=== PATIENT | female | born 1940 | race Caucasian/White ===

== ENCOUNTER → 2018-04-07 08:23 | Outpatient (CLI) | payer MEDICARE, BC, SELFPAY ==
[2018-04-07 09:36] LABS: Hemoglobin A1C% w Est Avg Glu 5.7 % (4.0-6.0)
[2018-04-07 09:37] LABS: Alanine Aminotransferase 27 IU/L (9-52); Albumin 4.3 g/dL (3.5-5.0); Albumin Globulin Ratio 1.4 (1.0-2.8); Alkaline Phosphatase 49 U/L (38-126); Aspartate Aminotransferase 26 IU/L (14-36); BUN Creatinine Ratio 28.6 (6-22); Bilirubin Total 0.6 mg/dL (0.2-1.3); Blood Urea Nitrogen 20 mg/dL (7-17); Calcium 9.3 mg/dL (8.4-10.2); Carbon Dioxide 33 mmol/L (22-32); Chloride 103 mmol/L (98-107); Cholesterol 195 mg/dL (140-199); Estimated Glomerular Filt Rate > 60.0 mL/min (>60); Glucose 102 mg/dL (80-110); HDL Cholesterol 67 mg/dL (40-60); HEMOLYSIS < 15 (0-50); LDL Cholesterol Calculated 113 mg/dL (<100); Potassium 4.6 mmol/L (3.4-5.1); Sodium 144 mmol/L (137-145); Total Protein 7.3 g/dL (6.3-8.2); Triglycerides 76 mg/dL (35-150)
== END ==
PROVIDERS: Visit Provider Student in an Organized Health Care Education/Training Program
DX: E78.00 Pure hypercholesterolemia, unspecified (principal); R73.01 Impaired fasting glucose
CPT/HCPCS: 36415; 80053; 80061; 83036

== ENCOUNTER → 2019-03-28 13:07 | Outpatient (CLI) | payer MEDICARE, BC, SELFPAY ==
--- NOTE | 2019-03-28 13:11 | DI.MG.S_ITS ---
BILATERAL DIGITAL DIAGNOSTIC MAMMOGRAM 3D/2D: 03/28/2019 CLINICAL: Right breast mass and left axilla pain. Baseline by default. No prior exams were available for comparison. The tissue of both breasts is extremely dense, which lowers the sensitivity of mammography. No significant masses, calcifications, or other findings are seen in either breast. IMPRESSION: INCOMPLETE: NEEDS ADDITIONAL IMAGING EVALUATION There is no mammographic abnormality seen in the right breast to correspond with the palpable abnormality. There is no mammographic abnormality seen in the left axilla to correspond with the pain in the left axilla. A targeted ultrasound of the bilateral breasts is recommended and will be performed immediately following this exam. This exam was interpreted at Station ID: [id number]. NOTE: For mammograms, a report in lay terms will be sent to the patient. Approximately 15% of breast malignancies will not be visualized mammographically. In the management of a palpable breast mass, a negative mammogram must not discourage biopsy of a clinically suspicious lesion. Electronically Signed By: Sarah Araiza M.D. lk/:03/28/2019 14:08:20 ACR BI-RADS Category 0: Incomplete 3340F
--- NOTE | 2019-03-28 13:11 | DI.US.S_ITS ---
ULTRASOUND OF RIGHT BREAST: 03/28/2019 CLINICAL: Palpable right breast lump. Comparison is made to exam dated: 03/28/2019 [facility]. Ultrasound of the right breast was performed on the area of interest. Romero scale images of the real-time examination were reviewed. IMPRESSION: NEGATIVE There is no sonographic evidence of malignancy. There is no mammographic or sonographic abnormality seen in the right breast to correspond with the palpable abnormality, however, clinical followup is recommended. A 1 year screening mammogram is recommended. This exam was interpreted at Station ID: [id number]. Electronically Signed By: Sarah Araiza M.D. lk/:03/28/2019 15:04:37 letter sent: Clinical Evaluation Ultrasound BI-RADS: 1 Negative
--- NOTE | 2019-03-28 13:11 | DI.US.S_ITS ---
ULTRASOUND OF LEFT BREAST: 03/28/2019 CLINICAL: Palpable left axilla lump. [facility] of the left breast was performed on the area of interest. Romero scale images of the real-time examination were reviewed. IMPRESSION: NEGATIVE There is no sonographic evidence of malignancy. There is no mammographic or sonographic abnormality seen in the left axilla to correspond with the pain in the left axilla, however, clinical followup is recommended. A 1 year screening mammogram is recommended. This exam was interpreted at Station ID: [id number]. Electronically Signed By: Sarah Araiza M.D. lk/:03/28/2019 15:04:02 letter sent: Clinical Evaluation Ultrasound BI-RADS: 1 Negative
== END ==
PROVIDERS: Visit Provider Nurse Practitioner
DX: N63.10 Unspecified lump in the right breast, unspecified quadrant (principal)
CPT/HCPCS: 76642; 77066; G0279

== ENCOUNTER → 2020-08-07 15:59 | Outpatient (CLI) | payer MEDICARE, BC, SELFPAY ==
--- NOTE | 2020-08-07 | DI.MG.S_ITS ---
BILATERAL DIGITAL SCREENING MAMMOGRAM 3D/2D WITH CAD: 08/07/2020 CLINICAL: Routine screening. Comparison is made to exams dated: 03/28/2019 mammogram - [facility], 09/18/2018 mammogram, 09/15/2017 mammogram, and 09/06/2016 mammogram - [facility]. The tissue of both breasts is extremely dense, which lowers the sensitivity of mammography. Current study was also evaluated with a Computer Aided Detection (CAD) system. There are benign vascular calcifications in both breasts. No significant masses, calcifications, or other findings are seen in either breast. There has been no significant interval change. IMPRESSION: BENIGN There is no mammographic evidence of malignancy. A 1 year screening mammogram is recommended. This exam was interpreted at Station ID: [id number]. NOTE: For mammograms, a report in lay terms will be sent to the patient. Approximately 15% of breast malignancies will not be visualized mammographically. In the management of a palpable breast mass, a negative mammogram must not discourage biopsy of a clinically suspicious lesion. Electronically Signed By: Keyur Rosas acr/penrad:08/07/2020 16:52:57 letter sent: Normal Exam ACR BI-RADS Category 2: Benign Finding(s) 3342F
== END ==
PROVIDERS: PCP Nurse Practitioner; Referring Provider Nurse Practitioner; Visit Provider Nurse Practitioner
DX: Z12.31 Encounter for screening mammogram for malignant neoplasm of breast (principal)
CPT/HCPCS: 77063; 77067

== ENCOUNTER → 2020-08-19 14:46 | Outpatient (ROUT) | payer MEDICARE, BC, SELFPAY ==
[2020-08-19 15:16] LABS: Hematocrit 39.6 % (36-46); Hemoglobin 13.3 g/dL (12.0-16.0); Mean Corpuscular HGB Conc 33.5 % (30-36); Mean Corpuscular Hemoglobin 31.4 PG (26-34); Mean Corpuscular Volume 93.7 fL (80-100); Platelet Count 219 X10^3/uL (150-400); Red Blood Cell Count 4.22 X10^6/uL (4.0-5.2); Red Cell Distribution Width 13.4 % (11.6-14.8); White Blood Cell Count 4.8 X10^3/uL (4.5-11.0)
[2020-08-19 15:30] LABS: Alanine Aminotransferase 16 IU/L (<35); Albumin 3.8 g/dL (3.5-5.0); Albumin Globulin Ratio 1.4 (1.0-2.8); Alkaline Phosphatase 51 U/L (38-126); Aspartate Aminotransferase 31 IU/L (14-36); Bilirubin Total 0.4 mg/dL (0.2-1.3); Blood Urea Nitrogen 18 mg/dL (7-17); Calcium 9.2 mg/dL (8.4-10.2); Carbon Dioxide 34 mmol/L (22-32); Chloride 103 mmol/L (98-107); Cholesterol 249 mg/dL (140-199); Estimated Glomerular Filt Rate > 60.0 mL/min (>60); Globulin 2.8 g/dL (1.7-4.1); Glucose 100 mg/dL (80-110); HDL Cholesterol 64 mg/dL (40-60); HEMOLYSIS < 15 (0-50); LDL Cholesterol Calculated 171 mg/dL (<100); Potassium 4.5 mmol/L (3.4-5.1); Sodium 138 mmol/L (137-145); Total Protein 6.6 g/dL (6.3-8.2); Triglycerides 70 mg/dL (35-150)
== END ==
PROVIDERS: PCP Nurse Practitioner; Visit Provider Student in an Organized Health Care Education/Training Program
DX: Z00.00 Encounter for general adult medical examination without abnormal findings (principal); E78.5 Hyperlipidemia, unspecified
CPT/HCPCS: 80053; 80061; 85027

== ENCOUNTER → 2020-08-27 14:14 | Outpatient (CLI) | payer MEDICARE, BC, SELFPAY | PROVIDERS: PCP Student in an Organized Health Care Education/Training Program; Referring Provider Student in an Organized Health Care Education/Training Program; Visit Provider Student in an Organized Health Care Education/Training Program | DX: M81.0 Age-related osteoporosis without current pathological fracture (principal); Z78.0 Asymptomatic menopausal state; Z82.62 Family history of osteoporosis; Z87.891 Personal history of nicotine dependence | CPT/HCPCS: 77080 ==

== ENCOUNTER → 2021-08-10 16:01 | Outpatient (CLI) | payer MEDICARE, BC, SELFPAY ==
--- NOTE | 2021-08-10 16:03 | DI.MG.S_ITS ---
BILATERAL DIGITAL SCREENING MAMMOGRAM 3D/2D WITH CAD: 08/10/2021 CLINICAL: Routine screening. Comparison is made to exams dated: 08/07/2020 mammogram, 03/28/2019 mammogram - [facility], and 09/18/2018 mammogram - [facility]. Current study was also evaluated with a Computer Aided Detection (CAD) system. There are benign vascular calcifications in both breasts. No significant masses, calcifications, or other findings are seen in either breast. There has been no significant interval change. IMPRESSION: BENIGN There is no mammographic evidence of malignancy. A 1 year screening mammogram is recommended. This exam was interpreted at Station ID: [id number]. NOTE: For mammograms, a report in lay terms will be sent to the patient. Approximately 15% of breast malignancies will not be visualized mammographically. In the management of a palpable breast mass, a negative mammogram must not discourage biopsy of a clinically suspicious lesion. Electronically Signed By: Srinivasa Booker M.D. [facility]/itz:08/11/2021 09:08:02 letter sent: Normal Exam ACR BI-RADS Category 2: Benign Finding(s) 3342F
== END ==
PROVIDERS: PCP Student in an Organized Health Care Education/Training Program; Referring Provider Student in an Organized Health Care Education/Training Program; Visit Provider Student in an Organized Health Care Education/Training Program
DX: Z12.31 Encounter for screening mammogram for malignant neoplasm of breast (principal)
CPT/HCPCS: 77063; 77067

== ENCOUNTER → 2021-08-26 16:36 | Outpatient (CLI) | payer MEDICARE, BC, SELFPAY ==
--- NOTE | 2021-08-26 | DI.MRI.S_ITS ---
PROCEDURE: MR SHOULDER RT WO CON INDICATIONS: unspecified disorder of synovium and tendon TECHNIQUE: Noncontrast oblique coronal T2 fast spin echo with fat saturation, oblique sagittal T1 spin echo and T2 fast spin echo with fat saturation, axial T1 spin echo and T2 fast spin echo with fat saturation through the shoulder. COMPARISON: [facility], CR, XR SHOULDER 2+ VIEWS RIGHT, 08/26/2021, 10:55. FINDINGS: Image quality: Excellent. Rotator cuff: There is mild tendinopathy of the supraspinatus tendon without a discrete tear. The infraspinatus, subscapularis, and teres minor also appear intact. There are foci of magnetic susceptibility artifact along the distal supraspinatus within the subacromial/subdeltoid bursa corresponding to calcifications on the prior x-ray and suggestive of calcific tendinitis. Sagittal images demonstrate no fatty muscle atrophy. Bones and bursae: No bone marrow contusions or fractures. There is moderate acromioclavicular joint degeneration. Mild inferior spurring is demonstrated along the acromion laterally. The acromion demonstrates conventional anatomy, without an os acromiale. There is a moderate amount of fluid in subacromial/subdeltoid bursa with heterogeneous filling defects including the foci of magnetic susceptibility described above corresponding to calcifications as well as linear filling defects which may represent synovitis or scarring. There is mild glenohumeral joint degeneration with small foci of subchondral edema along the glenoid. Capsule and soft tissues: There is mild degenerative tearing within the posterosuperior and posterior labrum. There is mild degenerative signal within the anteroinferior labrum. The long head of the biceps tendon demonstrates normal location and appears intact. IMPRESSION: 1. Mild tendinopathy in the supraspinatus tendon with associated foci of magnetic susceptibility distally consistent with calcifications extending into the subacromial/subdeltoid bursa. 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 The differential also includes dystrophic calcifications related to sequelae of bursitis. 2. Moderate amount of fluid in the subacromial/subdeltoid bursa with internal focal calcifications adjacent to the insertion of the supraspinatus as well as additional linear filling defects suggestive of synovitis or scarring. 3. Moderate acromioclavicular joint degeneration and mild glenohumeral joint degeneration. 4. Mild degenerative tearing of the posterosuperior and posterior labrum as well as degenerative signal in the anteroinferior labrum. Dictated by: Fito Velez M.D. on 08/27/2021 at 8:38 Approved by: Fito Velez M.D. on 08/27/2021 at 8:53
== END ==
PROVIDERS: PCP Student in an Organized Health Care Education/Training Program; Referring Provider Orthopaedic Surgery; Visit Provider Orthopaedic Surgery
DX: M65.811 Other synovitis and tenosynovitis, right shoulder (principal); M19.011 Primary osteoarthritis, right shoulder; S46.811A Strain of other muscles, fascia and tendons at shoulder and upper arm level, right arm, initial encounter
CPT/HCPCS: 73221

== ENCOUNTER → 2022-08-11 13:51 | Outpatient (CLI) | payer MEDICARE, BC, SELFPAY ==
--- NOTE | 2022-08-11 13:54 | DI.MG.S_ITS ---
BILATERAL DIGITAL SCREENING MAMMOGRAM 3D/2D WITH CAD: 08/11/2022 CLINICAL: Routine screening. Comparison is made to exams dated: 08/10/2021 mammogram, 08/07/2020 mammogram, and 03/28/2019 mammogram - [facility]. Both breasts are extremely dense, which lowers the sensitivity of mammography (category d />75% glandular tissue). Current study was also evaluated with a Computer Aided Detection (CAD) system. There is a developing oval asymmetry with an indistinct margin in the left breast posterior depth lateral region seen on the craniocaudal view only. No other significant masses, calcifications, or other findings are seen in either breast. IMPRESSION: INCOMPLETE: NEEDS ADDITIONAL IMAGING EVALUATION The developing oval asymmetry in the left breast is indeterminate. Additional views with possible ultrasound are recommended. Based on the Tyrer Cuzick model (a risk assessment model) the patient's lifetime risk is 4.7% and her 10 year risk is 0.0%. According to the ACR, ACS, and NCCN guidelines, an annual breast MRI exam along with mammogram is recommended if the patient's lifetime risk is 20% or greater. This exam was interpreted at Station ID: [id number]. NOTE: For mammograms, a report in lay terms will be sent to the patient. Approximately 15% of breast malignancies will not be visualized mammographically. In the management of a palpable breast mass, a negative mammogram must not discourage biopsy of a clinically suspicious lesion. Electronically Signed By: Tami mueller/itz:08/11/2022 15:47:56 letter sent: Additional Imaging Needed ACR BI-RADS Category 0: Incomplete 3340F
== END ==
PROVIDERS: PCP Student in an Organized Health Care Education/Training Program; Referring Provider Nurse Practitioner; Visit Provider Nurse Practitioner
DX: Z12.31 Encounter for screening mammogram for malignant neoplasm of breast (principal)
CPT/HCPCS: 77063; 77067

== ENCOUNTER → 2022-09-02 11:22 | Outpatient (CLI) | payer MEDICARE, BC, SELFPAY ==
--- NOTE | 2022-09-02 11:24 | DI.US.S_ITS ---
LIMITED ULTRASOUND OF LEFT BREAST: 09/02/2022 CLINICAL: Patient returns today to evaluate a focal asymmetry in the left breast. Comparison is made to exams dated: 09/02/2022 mammogram, 08/11/2022 mammogram, 08/10/2021 mammogram, and 08/07/2020 mammogram - [facility]. Ultrasound of the left breast 2-4 o'clock region was performed. Romero scale images of the real-time examination were reviewed. No significant abnormalities were seen sonographically in the left breast. Specifically, no finding to correspond to the patient's less prominent screening mammographic abnormality. IMPRESSION: PROBABLY BENIGN There is no sonographic correlate to the patient's mammographic abnormality. This is most likely fibroglandular tissue. A follow-up left mammogram in 6 months is recommended to demonstrate mammographic stability. Findings and recommendations were conveyed to the patient at time of exam. This exam was interpreted at Station ID: [id number]. Electronically Signed By: Tami mueller/:09/02/2022 12:21:31 letter sent: Followup Recommended Ultrasound BI-RADS: 3 Probably benign
--- NOTE | 2022-09-02 11:24 | DI.MG.S_ITS ---
UNILATERAL LEFT DIGITAL DIAGNOSTIC MAMMOGRAM 3D/2D WITH ADDITIONAL VIEWS: 09/02/2022 CLINICAL: Additional evaluation requested from prior study. Comparison is made to exams dated: 08/11/2022 mammogram, 08/10/2021 mammogram, and 08/07/2020 mammogram - [facility]. The left breast is extremely dense, which lowers the sensitivity of mammography (category d />75% glandular tissue). The possible oval asymmetry with an indistinct margin in the left breast posterior depth lateral region previously seen on the craniocaudal view only is not confirmed with additional views. It is less prominent with spot compression. No other significant masses or calcifications are seen in the breast. IMPRESSION: INCOMPLETE: NEEDS ADDITIONAL IMAGING EVALUATION The possible asymmetry in the left breast most likely is fibroglandular tissue but remains indeterminate. An ultrasound is recommended. This was performed immediately following this exam. Based on the Tyrer Cuzick model (a risk assessment model) the patient's lifetime risk is 4.0% and her 10 year risk is 0.0%. According to the ACR, ACS, and NCCN guidelines, an annual breast MRI exam along with mammogram is recommended if the patient's lifetime risk is 20% or greater. This exam was interpreted at Station ID: [id number]. NOTE: For mammograms, a report in lay terms will be sent to the patient. Approximately 15% of breast malignancies will not be visualized mammographically. In the management of a palpable breast mass, a negative mammogram must not discourage biopsy of a clinically suspicious lesion. Electronically Signed By: Tami mueller/:09/02/2022 12:18:24 ACR BI-RADS Category 0: Incomplete 3340F
== END ==
PROVIDERS: PCP Nurse Practitioner; Referring Provider Nurse Practitioner; Visit Provider Nurse Practitioner
DX: R92.8 Other abnormal and inconclusive findings on diagnostic imaging of breast (principal)
CPT/HCPCS: 76642; 77065; G0279

== ENCOUNTER → 2022-09-09 09:57 | Outpatient (CLI) | payer MEDICARE, BC, SELFPAY | PROVIDERS: PCP Nurse Practitioner; Referring Provider Nurse Practitioner; Visit Provider Nurse Practitioner | DX: M85.852 Other specified disorders of bone density and structure, left thigh (principal); Z78.0 Asymptomatic menopausal state; K63.9 Disease of intestine, unspecified; Z92.23 Personal history of estrogen therapy | CPT/HCPCS: 77080 ==

== ENCOUNTER → 2022-09-11 08:05 | Outpatient (CLI) | payer MEDICARE, BC, SELFPAY ==
[2022-09-11 09:35] LABS: Alanine Aminotransferase 20 IU/L (<35); Albumin Globulin Ratio 1.4 (1.0-2.8); Alkaline Phosphatase 48 U/L (38-126); Aspartate Aminotransferase 29 IU/L (14-36); BUN Creatinine Ratio 21.9 (6-22); Bilirubin Total 0.5 mg/dL (0.2-1.3); Blood Urea Nitrogen 16 mg/dL (7-17); Calcium 8.9 mg/dL (8.4-10.2); Carbon Dioxide 29 mmol/L (22-32); Chloride 100 mmol/L (98-107); Cholesterol 173 mg/dL (140-199); Estimated Glomerular Filt Rate > 60 mL/min (>60); Globulin 2.8 g/dL (1.7-4.1); Glucose 94 mg/dL (80-110); HDL Cholesterol 73 mg/dL (40-60); HEMOLYSIS < 15 (0-50); LDL Cholesterol Calculated 90 mg/dL (<100); Potassium 4.3 mmol/L (3.4-5.1); Sodium 138 mmol/L (137-145); Total Protein 6.8 g/dL (6.3-8.2); Triglycerides 52 mg/dL (35-150)
[2022-09-11 09:46] LABS: Free T4, Direct Thyroxine 0.96 ng/dL (0.78-2.19)
[2022-09-11 10:00] LABS: Thyroid Stimulating Hormone 2.28 uIU/mL (0.47-4.68)
[2022-09-11 14:53] LABS: Creatinine Urine Random 23.9 mg/dL
[2022-09-11 14:58] LABS: Microalbumin Urine Random < 0.6 mg/dL (0-1.6)
== END ==
PROVIDERS: PCP Nurse Practitioner; Referring Provider Nurse Practitioner; Visit Provider Nurse Practitioner
DX: E78.5 Hyperlipidemia, unspecified (principal); I10 Essential (primary) hypertension; K58.9 Irritable bowel syndrome, unspecified; M81.0 Age-related osteoporosis without current pathological fracture; Z79.899 Other long term (current) drug therapy
CPT/HCPCS: 36415; 80053; 80061; 82043; 82570; 84439; 84443; 84481

== ENCOUNTER 2022-11-09 11:34 | Observation (INO) | payer MEDICARE, BC, SELFPAY ==
[2022-11-09] VITALS (17 sets, daily range): BP systolic 135–236; BP diastolic 70–113; PULSE 69–102; RESP 16–33; TEMP 36.3–37.3; O2SAT 94–100; BMI 19.7
--- NOTE | 2022-11-09 11:42 | DI.RAD.S_ITS ---
PROCEDURE: XR CHEST 1V INDICATIONS: chest pain TECHNIQUE: One view of the chest was acquired. COMPARISON: None. FINDINGS: Surgical changes and devices: None. Lungs and pleura: Lungs are clear. No pleural effusions or pneumothorax. Mediastinum: Mediastinal contours appear normal. Heart size is normal. Bones and chest wall: No suspicious bony lesions. Overlying soft tissues appear unremarkable. IMPRESSION: No acute radiographic abnormality Dictated by: Shahbaz Berry M.D. on 11/09/2022 at 12:46 Approved by: Shahbaz Berry M.D. on 11/09/2022 at 12:47
--- NOTE | 2022-11-09 11:56 | ED_ITS ---
HPI - Chest Pain General Chief Complaint: Chest Pain Stated Complaint: chest pain/high BP since this morning Time Seen by Provider: 11/09/22 11:56 Source: patient Mode of arrival: Ambulatory Limitations: no limitations History of Present Illness HPI narrative: 82-year-old female former smoker with history of hypertension and hyperlipidemia presents with her in the chief complaint of left-sided chest pain that started this morning when she was making the bed. She states that it was stabbing and annoying in nature and wrapped around to the left side of her back. She states it was intense and persisted for a few hours and then resolved when she got here. She denies associated symptoms such as dizziness, weakness or lightheadedness. She denies any nausea, vomiting or unexplained diaphoresis. She states that she is largely pretty active and walks the [employer] trail frequently and denies any exertional symptoms such as this. She states she is been more fatigued than normal lately and under an impressive amount of stress Related Data Home Medications Medication Instructions Recorded Confirmed alprazolam 0.25 mg tablet 0.25 mg PO Q6H PRN depression 03/20/19 11/09/22 ascorbate calcium (vitamin C) 500 500 mg PO DAILY 03/20/19 11/09/22 mg tablet calcium carbonate 500 mg calcium 500 mg PO DAILY 03/20/19 11/09/22 (1,250 mg) tablet (Calcium 500) dicyclomine 10 mg capsule 10 mg PO Q6H PRN IBS 03/20/19 11/09/22 multivitamin (Daily Multi-Vitamin 1 tab PO DAILY 03/20/19 11/09/22 tablet) atorvastatin 10 mg tablet 20 mg PO DAILY 08/23/22 11/09/22 metoprolol succinate 25 mg 12.5 mg PO DAILY 08/23/22 11/09/22 tablet,extended release 24 hr sertraline 25 mg tablet See Rx Instructions PO DAILY 08/23/22 11/09/22 Allergies Allergy/AdvReac Type Severity Reaction Status Date / Time No Known Drug Allergies Allergy Verified 11/09/22 11:49 Review of Systems Review of Systems Narrative: GENERAL: Denies chills, fatigue, malaise, fever, sweats. HEENT: Denies sinus pain, ear pain, sore throat, difficulty swallowing, dizziness. RESPIRATORY: Denies dyspnea, cough, wheezing, hemoptysis, sputum. CARDIOVASCULAR: See HPI GASTROINTESTINAL: Denies nausea, vomiting, abdominal pain, diarrhea, constipation, melena. : Denies dysuria, frequency, incontinence, hematuria, urinary retention. MUSCULOSKELETAL: denies weakness, joint pain, or bony pain SKIN: Denies rash, skin lesions, or other NEUROLOGIC: Denies weakness, headache, numbness, change in speech, confusion, se izures, incoordination. PSYCHIATRIC: No concerning psychosocial issues. 12 point review of systems is negative except for those stated above Patient History Medical History (Updated 11/09/22 @ 22:41 by Suad Melgar RN) Age related osteoporosis HTN (hypertension) Hyperlipidemia IBS (irritable bowel syndrome) Surgical History (Updated 11/09/22 @ 17:20 by Abdias Burnett DO) No pertinent past surgical history Family History (Updated 11/09/22 @ 17:21 by Abdias Burnett DO) Mother CAD (coronary artery disease) Father CAD (coronary artery disease) Social History household members: spouse Smoking Status: Former smoker alcohol intake: current Smoking Status: Former smoker alcohol intake frequency: a few times a month Substance Use Type: does not use Exam Narrative Exam Narrative: GENERAL: [82] year old patient appears stated age. Well-developed patient, in mild distress. HEAD: Atraumatic. Normocephalic. EYES: Pupils equal round and reactive. Extraocular motions intact. No scleral icterus. No injection or drainage. ENT: Nose without bleeding, purulent drainage. Throat without erythema, tonsillar hypertrophy or exudate. Airway patent. NECK: Trachea midline. Non tender CARDIOVASCULAR: Regular rate and rhythm without murmurs, gallops, or rubs. No reproducible pain on palpation RESPIRATORY: Clear to auscultation. Breath sounds equal bilaterally. No wheezes, rales, or rhonchi. GASTROINTESTINAL: Abdomen soft, non-tender, nondistended. EXTREMITIES: No edema or joint tenderness. BACK: Nontender without deformity or crepitance. No flank tenderness. NEURO: AOx3. SKIN: No rash or erythema of visible areas Initial Vital Signs Initial Vital Signs: Vital Signs Temperature 98.5 F 11/09/22 11:40 Pulse Rate 86 11/09/22 11:40 Respiratory Rate 20 11/09/22 11:40 Blood Pressure 208/100 H 11/09/22 11:40 Pulse Oximetry 98 11/09/22 11:40 Oxygen Delivery Method Room Air 11/09/22 11:40 Scores HEART Score Heart Score history: Moderately Suspicious Heart Score EKG: Non-Specific repolarization disturbance Heart Score Age: > or = 65 years old Heart Score risk factors: > 3 risk factors or hx of atherosclerotic disease Heart Score troponin: < or = to normal limit Heart Score Total: 6 Course Course Course Narrative: Patient reports another, although milder episode of chest pain walking to the bathroom Orders Ordered: ED Orders 11/10/22 04:44 Complete Blood Count AUTO DIFF DAILY Comprehensive Metabolic Panel DAILY Lipid Panel Routine Magnesium DAILY TSH w/ Reflex to FT4 Routine 11/11/22 05:00 Complete Blood Count AUTO DIFF DAILY Comprehensive Metabolic Panel DAILY Magnesium DAILY 11/12/22 05:00 Complete Blood Count AUTO DIFF DAILY Comprehensive Metabolic Panel DAILY Magnesium DAILY Acetaminophen (Acetaminophen 325 Mg Tablet) 650 mg PO Q6H PRN PRN Reason: Fever/Mild Pain (1-3) Last Admin: 11/09/22 19:41 Dose: 650 mg Documented By: JUAN F Alprazolam (Alprazolam 0.25 Mg Tablet) 0.25 mg PO Q6H PRN PRN Reason: depression Aspirin (Aspirin Ec 81 Mg Tablet) 81 mg PO DAILY [facility] Atorvastatin Calcium (Atorvastatin 20 Mg Tablet) 80 mg PO BEDTIME DENEEN Last Admin: 11/09/22 20:56 Dose: 80 mg Documented By: JUAN F Dicyclomine HCl (Dicyclomine 10 Mg Capsule) 10 mg PO Q6H PRN PRN Reason: IBS Multivitamins (Multivitamin 1 Tablet) 1 tab PO DAILY [facility] Naloxone HCl (Naloxone 0.4 Mg/Ml Vial) 0.2 mg IV Q2MIN PRN PRN Reason: Opiate Reversal Nitroglycerin (Nitroglycerin 0.4 Mg Sl Tab) 0.4 mg SL [id number] PRN PRN Reason: Chest Pain Ondansetron HCl (Ondansetron 4 Mg/2 Ml Inj) 4 mg IV Q8HR PRN PRN Reason: Nausea And Vomiting Sertraline HCl (Sertraline 50 Mg Tablet) 50 mg PO DAILY [facility] Discontinued Medications Aspirin (Aspirin 81 Mg Chew Tab) 324 mg PO NOW ONE Stop: 11/09/22 11:43 Last Admin: 11/09/22 12:45 Dose: Not Given Documented By: OWEN Vital Signs Vital signs: Vital Signs - 8 hr 11/09/22 11:40 11/09/22 11:42 11/09/22 11:43 Temperature 98.5 F Pulse Rate 86 Respiratory Rate 20 Blood Pressure 208/100 H 236/113 H 208/100 H Pulse Oximetry 98 Oxygen Delivery Method Room Air 11/09/22 11:43 11/09/22 12:00 11/09/22 12:00 Temperature Pulse Rate 102 H 78 Respiratory Rate 24 24 Blood Pressure 198/90 H Pulse Oximetry 100 99 Oxygen Delivery Method 11/09/22 12:30 11/09/22 12:30 11/09/22 13:00 Temperature Pulse Rate 74 Respiratory Rate 16 Blood Pressure 195/85 H 189/84 H Pulse Oximetry 99 Oxygen Delivery Method 11/09/22 13:00 11/09/22 13:30 11/09/22 13:30 Temperature Pulse Rate 78 79 Respiratory Rate 16 21 Blood Pressure 170/76 H Pulse Oximetry 99 98 Oxygen Delivery Method Room Air MDM - Chest Pain Lab Data 11/10/22 04:44 11/10/22 04:44 Labs: Lab Results 11/09/22 11/09/22 11/09/22 Range/Units 11:50 11:50 11:50 WBC 7.8 (4.5-11.0) X10^3/uL RBC 4.31 (4.0-5.2) X10^6/uL Hgb 13.6 (12.0-16.0) g/dL Hct 40.0 (36-46) % MCV 92.9 (80-100) fL MCH 31.6 (26-34) PG MCHC 34.0 (30-36) % RDW 13.7 (11.6-14.8) % Plt Count 226 (150-400) X10^3/uL Neut % (Auto) 34.4 L (50-75) % Lymph % (Auto) 52.3 H (25-40) % Isabella % (Auto) 8.6 (3-14) % Eos % (Auto) 3.6 (2-4) % Baso % (Auto) 1.1 (0-2) % Neut # (Auto) 2700 (0980-0281) /uL Lymph # (Auto) 4100 (5961-0619) /uL Isabella # (Auto) 700 (0-900) /uL Eos # (Auto) 300 (0-450) /uL Baso # (Auto) 100 (0-100) /uL PT 11.9 (10.1-12.7) SECONDS INR 1.0 (0.9-1.3) APTT 32 (26-36) SECONDS Sodium 136 L (137-145) mmol/L Potassium 3.5 (3.4-5.1) mmol/L Chloride 102 (98-107) mmol/L Carbon Dioxide 26 (22-32) mmol/L BUN 15 (7-17) mg/dL Creatinine 0.66 (0.52-1.04) mg/dL Estimated GFR > 60 (>60) mL/min BUN/Creatinine Ratio 22.7 H (6-22) Glucose 124 H (80-110) mg/dL Calcium 8.9 (8.4-10.2) mg/dL Magnesium 2.1 (1.6-2.3) mg/dL Total Bilirubin 0.6 (0.2-1.3) mg/dL AST 32 (14-36) IU/L ALT 23 (<35) IU/L Alkaline Phosphatase 56 (38-126) U/L Total Creatine Kinase 59 (30-135) U/L CK-MB (CK-2) TNP CK-MB (CK-2) Rel Index TNP Troponin I < 0.012 (0.01-0.034) ng/mL Total Protein 7.8 (6.3-8.2) g/dL Albumin 4.2 (3.5-5.0) g/dL Globulin 3.6 (1.7-4.1) g/dL Albumin/Globulin Ratio 1.2 (1.0-2.8) Lipase 80 (23-300) U/L SARS-CoV-2 (PCR) (Negative) 11/09/22 11/09/22 Range/Units 15:00 15:10 WBC (4.5-11.0) X10^3/uL RBC (4.0-5.2) X10^6/uL Hgb (12.0-16.0) g/dL Hct (36-46) % MCV (80-100) fL MCH (26-34) PG MCHC (30-36) % RDW (11.6-14.8) % Plt Count (150-400) X10^3/uL Neut % (Auto) (50-75) % Lymph % (Auto) (25-40) % Isabella % (Auto) (3-14) % Eos % (Auto) (2-4) % Baso % (Auto) (0-2) % Neut # (Auto) (8702-1580) /uL Lymph # (Auto) (8567-7730) /uL Isabella # (Auto) (0-900) /uL Eos # (Auto) (0-450) /uL Baso # (Auto) (0-100) /uL PT (10.1-12.7) SECONDS INR (0.9-1.3) APTT (26-36) SECONDS Sodium (137-145) mmol/L Potassium (3.4-5.1) mmol/L Chloride (98-107) mmol/L Carbon Dioxide (22-32) mmol/L BUN (7-17) mg/dL Creatinine (0.52-1.04) mg/dL Estimated GFR (>60) mL/min BUN/Creatinine Ratio (6-22) Glucose (80-110) mg/dL Calcium (8.4-10.2) mg/dL Magnesium (1.6-2.3) mg/dL Total Bilirubin (0.2-1.3) mg/dL AST (14-36) IU/L ALT (<35) IU/L Alkaline Phosphatase (38-126) U/L Total Creatine Kinase (30-135) U/L CK-MB (CK-2) CK-MB (CK-2) Rel Index Troponin I < 0.012 (0.01-0.034) ng/mL Total Protein (6.3-8.2) g/dL Albumin (3.5-5.0) g/dL Globulin (1.7-4.1) g/dL Albumin/Globulin Ratio (1.0-2.8) Lipase (23-300) U/L SARS-CoV-2 (PCR) Negative (Negative) Discharge Plan Departure Patient Disposition: Admitted as Observation Clinical Impression: Chest pain, Age related osteoporosis Admit Date/Time: 11/09/22 16:07 Admit Provider: Abdias Burnett
[2022-11-09 11:58] LABS: Add Manual Diff / Slide Review NO; Basophils Absolute Auto 100 /uL (0-100); Basophils Percent Auto 1.1 % (0-2); Eosinophils Absolute Auto 300 /uL (0-450); Eosinophils Percent Auto 3.6 % (2-4); Hemoglobin 13.6 g/dL (12.0-16.0); Lymphocytes Absolute Auto 4100 /uL (1100-4500); Lymphocytes Percent Auto 52.3 % (25-40); Mean Corpuscular Hemoglobin 31.6 PG (26-34); Mean Corpuscular Volume 92.9 fL (80-100); Monocytes Absolute Auto 700 /uL (0-900); Monocytes Percent Auto 8.6 % (3-14); Neutrophils Absolute Auto 2700 /uL (1500-7000); Neutrophils Percent Auto 34.4 % (50-75); Platelet Count 226 X10^3/uL (150-400); Red Blood Cell Count 4.31 X10^6/uL (4.0-5.2); Red Cell Distribution Width 13.7 % (11.6-14.8); White Blood Cell Count 7.8 X10^3/uL (4.5-11.0)
[2022-11-09 12:04] LABS: Prothrombin Time 11.9 SECONDS (10.1-12.7)
[2022-11-09 12:07] LABS: PTT Partial Thromboplastin Tim 32 SECONDS (26-36)
[2022-11-09 12:09] LABS: Alanine Aminotransferase 23 IU/L (<35); Albumin 4.2 g/dL (3.5-5.0); Albumin Globulin Ratio 1.2 (1.0-2.8); Alkaline Phosphatase 56 U/L (38-126); Aspartate Aminotransferase 32 IU/L (14-36); BUN Creatinine Ratio 22.7 (6-22); Bilirubin Total 0.6 mg/dL (0.2-1.3); Blood Urea Nitrogen 15 mg/dL (7-17); Calcium 8.9 mg/dL (8.4-10.2); Carbon Dioxide 26 mmol/L (22-32); Chloride 102 mmol/L (98-107); Creatine Kinase 59 U/L (30-135); Estimated Glomerular Filt Rate > 60 mL/min (>60); Globulin 3.6 g/dL (1.7-4.1); Glucose 124 mg/dL (80-110); HEMOLYSIS < 15 (0-50); Lipase 80 U/L (23-300); Magnesium 2.1 mg/dL (1.6-2.3); Potassium 3.5 mmol/L (3.4-5.1); Sodium 136 mmol/L (137-145); Total Protein 7.8 g/dL (6.3-8.2)
[2022-11-09 12:20] LABS: Troponin I < 0.012 ng/mL (0.01-0.034)
[2022-11-09 15:40] LABS: COVID19 -Nasal RAPID Negative (Negative)
[2022-11-09 15:46] LABS: Troponin I < 0.012 ng/mL (0.01-0.034)
--- NOTE | 2022-11-09 16:08 | DI.NM.S_ITS ---
PROCEDURE: NM JUSTIN PERF SPECT REST & STR Rest and exercise myocardial perfusion SPECT with gated imaging and ejection fraction RADIOPHARMACEUTICAL: 9.0 mCi Tc-99m sestamibi IV at rest and 26.8 mCi Tc-99m sestamibi IV at peak exercise. A [id number] was performed. INDICATIONS: Chest pain TECHNIQUE: Radiopharmaceutical was injected at peak stress test, and also at rest. SPECT images were obtained. SPECT myocardial perfusion images were displayed in short axis, horizontal long axis, and vertical long axis views. Gated images were reviewed using [employer] software. COMPARISON: None. CARDIAC STRESS: A standard Quintin treadmill exercise tolerance test was performed by the patient under the supervision of an attending staff. The patient exercised for 5 minutes and 03 seconds; 7.0 METS; functional aerobic impairment (ETHEL) is -5%. Hemodynamic data: There is normal blood pressure and heart rate response to exercise stress. Patient achieved 99% of maximum predicted heart rate at peak exercise. Maximum blood pressure 176/92. Symptoms: Patient denied chest pain during exercise. EKG: No diagnostic EKG changes of ischemia; occasional PACs. FINDINGS: Raw data: There is good myocardial labeling by radiotracer. No significant motion artifacts. Duio-tt-[id number] ratio is 0.32 (normal is less than 0.38 for sestamibi tracer, and less than 0.50 for thallium tracer). Left ventricle function: Gated images demonstrate normal left ventricle wall thickening. No segmental wall motion abnormality. No transient ischemic dilation; TID is 0.74 (normal less than 1.3). The left ventricle resting end-diastolic volume was not measured. Left ventricle stress ejection fraction is >75%; normal values are above 45%. Myocardial perfusion: There is normal distribution of activity in the left and right ventricular myocardium. No fixed or reversible perfusion defects. IMPRESSION: Low risk study. No evidence of exercise-induced ischemia on ECG or SPECT imaging. Hyperdynamic LV function. Normal hemodynamic response. Normal exercise capacity. Dictated by: Dayana Pretty D.O. on 11/10/2022 at 12:59 Approved by: Dayana Pretty D.O. on 11/10/2022 at 13:02
--- NOTE | 2022-11-09 17:19 | P.HP_ITS ---
History of Present Illness History of Present Illness Date Patient Seen: 11/09/22 Time Patient Seen: 17:20 Chief complaint: chest pain since this morning Narrative: This is an 82-year-old female with a past medical history of hypertension, and hyperlipidemia, IBS (mixed), osteoporosis who presented to the emergency room today with chest pain. The pain felt both sharp and heavy, was located substernally with radiation into her bilateral shoulders. The pain developed when she was making her bed this morning and continued for about a half an hour then resolved. She felt a bit nauseous, but had no vomiting. She denied any palpitations, shortness of breath, abdominal pain, diaphoresis, or arm numbness. After the pain went away she felt a bit relieved, but came to the emergency room when she felt the pain returning. In the emergency room, Patient was mildly hypertensive, but the remainder of her vitals were unremarkable. CXR was unremarkable. EKG showed NSR. Lab evaluation was also unremarkable including negative troponin. HEART score was determined to be intermediate risk, patient was admitted for further evaluation of her chest pain, ACS rule out with plan for probable stress testing tomorrow. [facility] Medical History (Updated 11/09/22 @ 17:20 by Abdias Burnett DO) Age related osteoporosis HTN (hypertension) Hyperlipidemia IBS (irritable bowel syndrome) Surgical History (Updated 11/09/22 @ 17:20 by Abdias Burnett DO) No pertinent past surgical history Family History (Updated 11/09/22 @ 17:21 by Abdias Burnett DO) Mother CAD (coronary artery disease) Father CAD (coronary artery disease) Social History household members: spouse Smoking Status: Former smoker alcohol intake: current Meds Home Medications and Allergies Home Medications Medication Instructions Recorded Confirmed Type alprazolam 0.25 mg tablet 0.25 mg PO Q6H PRN depression 03/20/19 11/09/22 History ascorbate calcium (vitamin C) 500 500 mg PO DAILY 03/20/19 11/09/22 History mg tablet calcium carbonate 500 mg calcium 500 mg PO DAILY 03/20/19 11/09/22 History (1,250 mg) tablet (Calcium 500) dicyclomine 10 mg capsule 10 mg PO Q6H PRN IBS 03/20/19 11/09/22 History multivitamin (Daily Multi-Vitamin 1 tab PO DAILY 03/20/19 11/09/22 History tablet) atorvastatin 10 mg tablet 20 mg PO DAILY 08/23/22 11/09/22 History metoprolol succinate 25 mg 12.5 mg PO DAILY 08/23/22 11/09/22 History tablet,extended release 24 hr sertraline 25 mg tablet See Rx Instructions PO DAILY 08/23/22 11/09/22 History Allergies Allergy/AdvReac Type Severity Reaction Status Date / Time No Known Drug Allergies Allergy Verified 11/09/22 11:49 Review of Systems Review of Systems Narrative: All other systems reviewed with the patient and are negative unless otherwise stated. Exam Vital Signs (past 8 hours): - 11/09/22 11:40 11/09/22 11:42 11/09/22 11:43 Temperature 98.5 F Pulse Rate 86 Respiratory Rate 20 Blood Pressure 208/100 H 236/113 H 208/100 H Pulse Oximetry 98 Oxygen Delivery Method Room Air 11/09/22 11:43 11/09/22 12:00 11/09/22 12:00 Temperature Pulse Rate 102 H 78 Respiratory Rate 24 24 Blood Pressure 198/90 H Pulse Oximetry 100 99 Oxygen Delivery Method 11/09/22 12:30 11/09/22 12:30 11/09/22 13:00 Temperature Pulse Rate 74 Respiratory Rate 16 Blood Pressure 195/85 H 189/84 H Pulse Oximetry 99 Oxygen Delivery Method 11/09/22 13:00 11/09/22 13:30 11/09/22 13:30 Temperature Pulse Rate 78 79 Respiratory Rate 16 21 Blood Pressure 170/76 H Pulse Oximetry 99 98 Oxygen Delivery Method Room Air 11/09/22 14:00 11/09/22 14:00 11/09/22 14:30 Temperature Pulse Rate 81 Respiratory Rate 19 Blood Pressure 175/77 H 164/77 H Pulse Oximetry 99 Oxygen Delivery Method 11/09/22 14:30 11/09/22 15:00 11/09/22 15:00 Temperature Pulse Rate 84 83 Respiratory Rate 22 33 H Blood Pressure 186/86 H Pulse Oximetry 97 96 Oxygen Delivery Method 11/09/22 15:18 11/09/22 15:18 11/09/22 15:30 Temperature Pulse Rate 79 Respiratory Rate 21 Blood Pressure 183/81 H 150/72 H Pulse Oximetry 96 Oxygen Delivery Method 11/09/22 15:30 11/09/22 16:00 11/09/22 16:00 Temperature Pulse Rate 76 77 Respiratory Rate 18 22 Blood Pressure 155/70 H Pulse Oximetry 96 96 Oxygen Delivery Method Oxygen Delivery Method Room Air Narrative Exam Narrative: General:? Patient is well developed and well nourished, in no distress at this time. HEENT:? Normocephalic, atraumatic, extraocular muscles intact, oral pharynx is clear and mucous membranes are moist. Neck: supple and symmetric, trachea is midline, no cervical adenopathy. Negative for JVD Chest:? Normal AP diameter and contour without kyphoscoliosis, no tachypnea, equal chest rise bilaterally. Lungs:? CTA b/l no wheezing rhonchi or rales. Cardio:?RRR no m/r/g. Abdomen: S NT ND. No CVA tenderness. Musculoskeletal:? Muscle strength and tone are equal within normal limits, no deformity. Extremities: No edema or joint effusions. No cyanosis or clubbing. Skin:? Pale,? Warm to touch,dry and intact without rashes, ulcerations or petechiae.? Neuro:? Alert and orientated x3,? sensation to touch intact in all extremities, no gross deficits noted of cranial nerves. Psych:? Patient has a well-kept appearance, appropriate affect, mental status attitude thought context and judgment are appropriate for age. Objective ECG Impression: Normal sinus rhythm Labs 11/09/22 11:50 11/09/22 11:50 Labs: Laboratory Results - last 24 hr 11/09/22 11/09/22 11/09/22 11:50 11:50 11:50 WBC 7.8 RBC 4.31 Hgb 13.6 Hct 40.0 MCV 92.9 MCH 31.6 MCHC 34.0 RDW 13.7 Plt Count 226 Neut % (Auto) 34.4 L Lymph % (Auto) 52.3 H [place] % (Auto) 8.6 Eos % (Auto) 3.6 Baso % (Auto) 1.1 Neut # (Auto) 2700 Lymph # (Auto) 4100 [place] # (Auto) 700 Eos # (Auto) 300 Baso # (Auto) 100 PT 11.9 INR 1.0 APTT 32 Sodium 136 L Potassium 3.5 Chloride 102 Carbon Dioxide 26 BUN 15 Creatinine 0.66 Estimated GFR > 60 BUN/Creatinine Ratio 22.7 H Glucose 124 H Calcium 8.9 Magnesium 2.1 Total Bilirubin 0.6 AST 32 ALT 23 Alkaline Phosphatase 56 Total Creatine Kinase 59 CK-MB (CK-2) TNP CK-MB (CK-2) Rel Index TNP Troponin I < 0.012 Total Protein 7.8 Albumin 4.2 Globulin 3.6 Albumin/Globulin Ratio 1.2 Lipase 80 SARS-CoV-2 (PCR) 11/09/22 11/09/22 15:00 15:10 WBC RBC Hgb Hct MCV MCH MCHC RDW Plt Count Neut % (Auto) Lymph % (Auto) [place] % (Auto) Eos % (Auto) Baso % (Auto) Neut # (Auto) Lymph # (Auto) [place] # (Auto) Eos # (Auto) Baso # (Auto) PT INR APTT Sodium Potassium Chloride Carbon Dioxide BUN Creatinine Estimated GFR BUN/Creatinine Ratio Glucose Calcium Magnesium Total Bilirubin AST ALT Alkaline Phosphatase Total Creatine Kinase CK-MB (CK-2) CK-MB (CK-2) Rel Index Troponin I < 0.012 Total Protein Albumin Globulin Albumin/Globulin Ratio Lipase SARS-CoV-2 (PCR) Negative Assessment & Plan Assessment & Plan narrative: 1. Chest pain - Intermediate risk, further risk stratify with stress testing. - start asa, statin therapy for now - hold home beta louis prior to stress testing - check 8 hour troponin given symptoms started early this morning. 2. HTN - will hold home metoprolol prior to stress testing, consider alternative agent if persistently remains elevated 3. HLD - will increase statin to high intensity in case of CAD 4. Anxiety - continue home sertraline, alprazolam Code: Full, surrogate is patient's spouse DVT: low risk, ambulatory I have utilized all available immediate resources to obtain, update, or review the patient's current medications. Discussed with ER provider and patient's care team for additional history and plan formation. Discussed plan with patient. Dispo: observation, probable discharge home if stress testing unremarkable Quality VTE Deep Vein Thrombosis/Pulmonary Embolism Present on Admission: No
[2022-11-09] MEDS: ACETAMINOPHEN 325 MG TABLET 650 MG PO (19:41)
[2022-11-09 20:43] LABS: Troponin I 0.014 ng/mL (0.01-0.034)
[2022-11-09] MEDS: ATORVASTATIN 20 MG TABLET 80 MG PO (20:56)
[2022-11-10] VITALS: O2SAT 94
[2022-11-10 03:30] VITALS: BP 136/76; PULSE 73; RESP 18; TEMP 36.6; O2SAT 97
[2022-11-10 04:00] VITALS: O2SAT 94
[2022-11-10 06:02] LABS: Alanine Aminotransferase 20 IU/L (<35); Albumin 3.4 g/dL (3.5-5.0); Albumin Globulin Ratio 1.1 (1.0-2.8); Alkaline Phosphatase 42 U/L (38-126); Aspartate Aminotransferase 29 IU/L (14-36); BUN Creatinine Ratio 21.9 (6-22); Bilirubin Total 0.5 mg/dL (0.2-1.3); Blood Urea Nitrogen 14 mg/dL (7-17); Calcium 8.5 mg/dL (8.4-10.2); Carbon Dioxide 28 mmol/L (22-32); Chloride 106 mmol/L (98-107); Cholesterol 158 mg/dL (140-199); Estimated Glomerular Filt Rate > 60 mL/min (>60); Glucose 92 mg/dL (80-110); HDL Cholesterol 58 mg/dL (40-60); HEMOLYSIS < 15 (0-50); LDL Cholesterol Calculated 87 mg/dL (<100); Magnesium 2.2 mg/dL (1.6-2.3); Potassium 3.8 mmol/L (3.4-5.1); Sodium 138 mmol/L (137-145); Total Protein 6.4 g/dL (6.3-8.2); Triglycerides 66 mg/dL (35-150)
[2022-11-10 06:04] LABS: Add Manual Diff / Slide Review NO; Basophils Absolute Auto 100 /uL (0-100); Eosinophils Absolute Auto 100 /uL (0-450); Eosinophils Percent Auto 2.7 % (2-4); Hematocrit 36.8 % (36-46); Hemoglobin 12.5 g/dL (12.0-16.0); Lymphocytes Absolute Auto 1700 /uL (1100-4500); Lymphocytes Percent Auto 35.4 % (25-40); Mean Corpuscular HGB Conc 33.9 % (30-36); Mean Corpuscular Hemoglobin 31.3 PG (26-34); Mean Corpuscular Volume 92.2 fL (80-100); Monocytes Absolute Auto 500 /uL (0-900); Monocytes Percent Auto 9.3 % (3-14); Neutrophils Absolute Auto 2500 /uL (1500-7000); Neutrophils Percent Auto 51.6 % (50-75); Platelet Count 201 X10^3/uL (150-400); Red Blood Cell Count 3.99 X10^6/uL (4.0-5.2); Red Cell Distribution Width 13.8 % (11.6-14.8); White Blood Cell Count 4.9 X10^3/uL (4.5-11.0)
[2022-11-10 06:28] LABS: TSH w/ Reflex to FT4 2.79 uIU/mL (0.47-4.68)
[2022-11-10 08:00] VITALS: BP 173/79; PULSE 68; RESP 16; TEMP 36.4; O2SAT 98
[2022-11-10 08:24] VITALS: O2SAT 98
[2022-11-10] MEDS: SERTRALINE 50 MG TABLET PO (08:24)
[2022-11-10] MEDS: MULTIVITAMIN 1 TABLET 1 TAB PO (08:24)
[2022-11-10] MEDS: ASPIRIN EC 81 MG TABLET PO (08:24)
--- NOTE | 2022-11-10 14:34 | P.DS_ITS ---
History of Present Illness History of Present Illness Date Patient Seen: 11/10/22 Time Patient Seen: 14:34 Chief complaint: chest pain since this morning Narrative: This is an 82-year-old female with a past medical history of hypertension, and hyperlipidemia, IBS (mixed), osteoporosis who presented to the emergency room today with chest pain. The pain felt both sharp and heavy, was located substernally with radiation into her bilateral shoulders. The pain developed when she was making her bed this morning and continued for about a half an hour then resolved. She felt a bit nauseous, but had no vomiting. She denied any palpitations, shortness of breath, abdominal pain, diaphoresis, or arm numbness. After the pain went away she felt a bit relieved, but came to the emergency room when she felt the pain returning. In the emergency room, Patient was mildly hypertensive, but the remainder of her vitals were unremarkable. CXR was unremarkable. EKG showed NSR. Lab evaluation was also unremarkable including negative troponin. HEART score was determined to be intermediate risk, patient was admitted for further evaluation of her chest pain, ACS rule out with plan for probable stress testing tomorrow. Discharge Providers Provider Date of admission: 11/09/22 16:07 Discharge Date: 11/10/22 Primary care physician: TITI Le Discharge provider: DO Jewel Flowers Hospital Course Discharge Diagnosis: 1. Chest pain 2. HTN 3. HLD 4. Anxiety Hospital Course: 82 year old female with multiple risk factors admitted to the hospital for further risk stratification of chest pain. Chest pain did not recur over the course of her stay. Troponins were negative and she underwent nuclear stress testing which was deemed low risk with hyperdynamic function. Echocardiogram was not obtained given lack of availability prior to discharge, and hyperdynamic function noted on stress imaging. Musculoskeletal cause is suspected as the most likely etiology at this time given low risk stress testing. She had normotensive BPs along with hypertensive BPs, to avoid hypotension no changes are recommended at this time but patient is encouraged to follow up with her primary care provider and maintain BP log at home for continued management. A1c is still pending at the time of this discharge summary, but TSH and Lipid profile were unremarkable. Time Spent with Patient Time spent: Greater than 30 minutes Exam Vital Signs (past 8 hours): - 11/10/22 08:00 11/10/22 08:24 Temperature 97.5 F L Pulse Rate 68 Respiratory Rate 16 Blood Pressure 173/79 H Pulse Oximetry 98 98 Oxygen Delivery Method Room Air Oxygen Delivery Method Room Air Oxygen Flow Rate 0 Narrative Exam Narrative: General:? Patient is well developed and well nourished, in no distress at this time. HEENT:? Normocephalic, atraumatic, extraocular muscles intact, oral pharynx is clear and mucous membranes are moist. Neck: supple and symmetric, trachea is midline, no cervical adenopathy. Negative for JVD Chest:? Normal AP diameter and contour without kyphoscoliosis, no tachypnea, equal chest rise bilaterally. Lungs:? CTA b/l no wheezing rhonchi or rales. Cardio:?RRR no m/r/g. Abdomen: S NT ND. No CVA tenderness. Musculoskeletal:? Muscle strength and tone are equal within normal limits, no deformity. Extremities: No edema or joint effusions. No cyanosis or clubbing. Skin:? Pale,? Warm to touch,dry and intact without rashes, ulcerations or petechiae.? Neuro:? Alert and orientated x3,? sensation to touch intact in all extremities, no gross deficits noted of cranial nerves. Psych:? Patient has a well-kept appearance, appropriate affect, mental status attitude thought context and judgment are appropriate for age. Objective Labs 11/10/22 04:44 11/10/22 04:44 Labs: Laboratory Results - last 24 hr 11/09/22 11/09/22 11/09/22 15:00 15:10 20:09 WBC RBC Hgb Hct MCV MCH MCHC RDW Plt Count Neut % (Auto) Lymph % (Auto) [place] % (Auto) Eos % (Auto) Baso % (Auto) Neut # (Auto) Lymph # (Auto) [place] # (Auto) Eos # (Auto) Baso # (Auto) Sodium Potassium Chloride Carbon Dioxide BUN Creatinine Estimated GFR BUN/Creatinine Ratio Glucose Calcium Magnesium Total Bilirubin AST ALT Alkaline Phosphatase Troponin I < 0.012 0.014 Total Protein Albumin Globulin Albumin/Globulin Ratio Triglycerides Cholesterol LDL Cholesterol, Calc HDL Cholesterol TSH SARS-CoV-2 (PCR) Negative 11/10/22 11/10/22 11/10/22 04:44 04:44 04:44 WBC 4.9 RBC 3.99 L Hgb 12.5 Hct 36.8 MCV 92.2 MCH 31.3 MCHC 33.9 RDW 13.8 Plt Count 201 Neut % (Auto) 51.6 Lymph % (Auto) 35.4 [place] % (Auto) 9.3 Eos % (Auto) 2.7 Baso % (Auto) 1.0 Neut # (Auto) 2500 Lymph # (Auto) 1700 [place] # (Auto) 500 Eos # (Auto) 100 Baso # (Auto) 100 Sodium 138 Potassium 3.8 Chloride 106 Carbon Dioxide 28 BUN 14 Creatinine 0.64 Estimated GFR > 60 BUN/Creatinine Ratio 21.9 Glucose 92 Calcium 8.5 Magnesium 2.2 Total Bilirubin 0.5 AST 29 ALT 20 Alkaline Phosphatase 42 Troponin I Total Protein 6.4 Albumin 3.4 L Globulin 3.0 Albumin/Globulin Ratio 1.1 Triglycerides 66 Cholesterol 158 LDL Cholesterol, Calc 87 HDL Cholesterol 58 TSH 2.79 SARS-CoV-2 (PCR) [facility] Medical History (Updated 11/09/22 @ 22:41 by Suad Melgar RN) Age related osteoporosis HTN (hypertension) Hyperlipidemia IBS (irritable bowel syndrome) Surgical History (Updated 11/09/22 @ 17:20 by Abdias Burnett DO) No pertinent past surgical history Family History (Updated 11/09/22 @ 17:21 by Abdias Burnett DO) Mother CAD (coronary artery disease) Father CAD (coronary artery disease) Social History household members: spouse Smoking Status: Former smoker alcohol intake: current Discharge Plan Discharge Plan Patient Disposition: Home Provider Discharge Comment: you were admitted to the hospital for further evaluation of chest pain. Stress testing was normal, no echocardiogram is needed at this time. No changes to home medications are recommended. Please follow up with your PCP as previously scheduled. Discharge orders & Medications Prescriptions: Continued alprazolam 0.25 mg tablet 0.25 mg PO Q6H PRN (Reason: depression) dicyclomine 10 mg capsule 10 mg PO Q6H PRN (Reason: IBS) multivitamin [Daily Multi-Vitamin] tablet 1 tab PO DAILY calcium carbonate [Calcium 500] 500 mg calcium (1,250 mg) tablet 500 mg PO DAILY ascorbate calcium (vitamin C) 500 mg tablet 500 mg PO DAILY sertraline 25 mg tablet See Rx Instructions PO DAILY Patient Comments: Take a total 50mg daily Rx Instructions: Take a total of 50mg daily atorvastatin 10 mg tablet 20 mg PO DAILY metoprolol succinate 25 mg tablet extended release 24 hr 12.5 mg PO DAILY Follow up/Referrals: Katie Elder ARNP [Primary Care Provider] - Diet/Activity/Treatments Diet: Diet as Tolerated Activity: As tolerated Visit Report/Discharge Packet Instructions: DI for Chest Pain Stand Alone Forms: Patient Portal/API, Stroke Signs & Symptoms Discharge Data Primary Care Provider: Katie Elder Attending Provider: Abdias Burnett Admmarcio Date/Time: 11/09/22 16:07 Quality VTE Deep Vein Thrombosis/Pulmonary Embolism Present on Admission: No
[2022-11-10 22:48] LABS: x Labcorp Estim. Avg Glu (eAG) 126 mg/dL (.)
== END 2022-11-10 15:05 | disposition home or self-care (01) ==
LOC: ED 11:56 → AC 16:07
PROVIDERS: Admitting Provider Internal Medicine; Emergency Provider Emergency Medicine; PCP Nurse Practitioner; Visit Provider Internal Medicine
DX: R07.9 Chest pain, unspecified (principal); I10 Essential (primary) hypertension; E78.5 Hyperlipidemia, unspecified; F41.9 Anxiety disorder, unspecified; Z20.822 Contact with and (suspected) exposure to COVID-19
CPT/HCPCS: 36415; 71045; 78452; 80053; 80061; 82550; 83036; 83690; 83735; 84443; 84484; 85025; 85610; 85730; 87635; 93005; 93017; 99284; C9803; G0378; A9502

== ENCOUNTER → 2023-04-20 12:00 | Outpatient (CLI) | payer MEDICARE, BC, SELFPAY ==
[2022-11-09 16:11] VITALS: BMI 19.7
--- NOTE | 2023-04-20 12:01 | DI.MG.S_ITS ---
UNILATERAL LEFT DIGITAL DIAGNOSTIC MAMMOGRAM 3D/2D SHORT-TERM FOLLOW-UP: 04/20/2023 CLINICAL: Short term follow up for the left breast. Comparison is made to exams dated: 09/02/2022 mammogram, 08/11/2022 mammogram, and 08/10/2021 mammogram - [facility]. The left breast is extremely dense, which lowers the sensitivity of mammography (category d />75% glandular tissue). There is a stable oval asymmetry with an indistinct margin in the left breast posterior depth lateral region seen on the craniocaudal view only. This was not seen on the prior ultrasound. No other significant masses or calcifications are seen in the breast. IMPRESSION: PROBABLY BENIGN The developing stable oval asymmetry in the left breast is probably benign. A follow-up mammogram in 6 months is recommended to demonstrate stability. Based on the Tyrer Cuzick model (a risk assessment model) the patient's lifetime risk is 4.0% and her 10 year risk is 0.0%. According to the ACR, ACS, and NCCN guidelines, an annual breast MRI exam along with mammogram is recommended if the patient's lifetime risk is 20% or greater. This exam was interpreted at Station ID: [id number]. NOTE: For mammograms, a report in lay terms will be sent to the patient. Approximately 15% of breast malignancies will not be visualized mammographically. In the management of a palpable breast mass, a negative mammogram must not discourage biopsy of a clinically suspicious lesion. Electronically Signed By: Shahbaz Berry M.D. lc/:04/20/2023 12:41:39 letter sent: Followup Recommended ACR BI-RADS Category 3: Probably benign [id number]
== END ==
PROVIDERS: PCP Nurse Practitioner; Referring Provider Nurse Practitioner; Visit Provider Nurse Practitioner
DX: R92.8 Other abnormal and inconclusive findings on diagnostic imaging of breast (principal); N64.89 Other specified disorders of breast
CPT/HCPCS: 77065; G0279

== ENCOUNTER → 2023-12-28 | Outpatient (CLI) | payer MEDICARE, BC, SELFPAY ==
[2022-11-09 16:11] VITALS: BMI 19.7
--- NOTE | 2023-12-28 12:50 | DI.MG.S_ITS ---
BILATERAL DIGITAL DIAGNOSTIC MAMMOGRAM 3D/2D: 12/28/2023 CLINICAL: Patient returns for a 6 month follow up of the left breast, due for bilateral exam. Comparison is made to exams dated: 04/20/2023 mammogram, 09/02/2022 mammogram, 09/02/2022 ultrasound, 08/11/2022 mammogram, 08/10/2021 mammogram, and 08/07/2020 mammogram - [facility]. Both breasts are extremely dense, which lowers the sensitivity of mammography (category d />75% glandular tissue). There is a stable asymmetry with an indistinct margin in the left breast posterior depth lateral region seen on the craniocaudal view only. This was not seen on the prior ultrasound. No other significant masses, calcifications, or other findings are seen in either breast. IMPRESSION: PROBABLY BENIGN The stable asymmetry in the left breast is probably benign. A follow-up mammogram and possible ultrasound in 6 months is recommended to demonstrate stability. Based on the Tyrer Cuzick model (a risk assessment model) the patient's lifetime risk is 1.9% and her 10 year risk is 0.0%. According to the ACR, ACS, and NCCN guidelines, an annual breast MRI exam along with mammogram is recommended if the patient's lifetime risk is 20% or greater. This exam was interpreted at Station ID: [id number]. NOTE: For mammograms, a report in lay terms will be sent to the patient. Approximately 15% of breast malignancies will not be visualized mammographically. In the management of a palpable breast mass, a negative mammogram must not discourage biopsy of a clinically suspicious lesion. Electronically Signed By: Sarah rosario/:01/09/2024 13:39:15 letter sent: Followup Recommended ACR BI-RADS Category 3: Probably benign [id number]
== END ==
PROVIDERS: PCP Nurse Practitioner; Referring Provider Nurse Practitioner; Visit Provider Nurse Practitioner
DX: R92.8 Other abnormal and inconclusive findings on diagnostic imaging of breast (principal); R92.343 Mammographic extreme density, bilateral breasts; N64.89 Other specified disorders of breast
CPT/HCPCS: 77066; G0279

== ENCOUNTER → 2024-01-11 07:17 | Outpatient (CLI) | payer MEDICARE, BC, SELFPAY ==
[2022-11-09 16:11] VITALS: BMI 19.7
[2024-01-11 08:30] LABS: Add Manual Diff / Slide Review NO; Basophils Absolute Auto 0 /uL (0-100); Basophils Percent Auto 0.7 % (0-2); Eosinophils Absolute Auto 200 /uL (0-450); Eosinophils Percent Auto 3.8 % (2-4); Hematocrit 36.9 % (36-46); Hemoglobin 12.6 g/dL (12.0-16.0); Lymphocytes Absolute Auto 2000 /uL (1100-4500); Lymphocytes Percent Auto 39.7 % (25-40); Mean Corpuscular HGB Conc 34.2 % (30-36); Mean Corpuscular Hemoglobin 31.7 PG (26-34); Mean Corpuscular Volume 92.8 fL (80-100); Monocytes Absolute Auto 500 /uL (0-900); Monocytes Percent Auto 10.1 % (3-14); Neutrophils Absolute Auto 2300 /uL (1500-7000); Neutrophils Percent Auto 45.7 % (50-75); Platelet Count 219 X10^3/uL (150-400); Red Blood Cell Count 3.97 X10^6/uL (4.0-5.2); Red Cell Distribution Width 13.1 % (11.6-14.8); White Blood Cell Count 5.1 X10^3/uL (4.5-11.0)
[2024-01-11 08:50] LABS: Alanine Aminotransferase 17 IU/L (<35); Albumin 3.9 g/dL (3.5-5.0); Albumin Globulin Ratio 1.5 (1.0-2.8); Alkaline Phosphatase 55 U/L (38-126); Aspartate Aminotransferase 31 IU/L (14-36); BUN Creatinine Ratio 22.4 (6-22); Bilirubin Total 0.7 mg/dL (0.2-1.3); Blood Urea Nitrogen 17 mg/dL (7-17); Calcium 8.9 mg/dL (8.4-10.2); Carbon Dioxide 30 mmol/L (22-32); Chloride 105 mmol/L (98-107); Cholesterol 181 mg/dL (140-199); Estimated Glomerular Filt Rate > 60 mL/min (>60); Globulin 2.6 g/dL (1.7-4.1); Glucose 95 mg/dL (80-110); HDL Cholesterol 74 mg/dL (40-60); HEMOLYSIS < 15 (0-50); LDL Cholesterol Calculated 92 mg/dL (<100); Potassium 4.3 mmol/L (3.4-5.1); Sodium 138 mmol/L (137-145); Total Protein 6.5 g/dL (6.3-8.2); Triglycerides 76 mg/dL (35-150)
[2024-01-11 09:07] LABS: Free T3, Triiodothyronine Free 3.24 pg/mL (2.77-5.27); Free T4, Direct Thyroxine 0.86 ng/dL (0.78-2.19)
== END ==
LOC: LAB 07:19
PROVIDERS: PCP Nurse Practitioner; Referring Provider Nurse Practitioner; Visit Provider Nurse Practitioner
DX: M81.0 Age-related osteoporosis without current pathological fracture (principal); E78.5 Hyperlipidemia, unspecified; R73.09 Other abnormal glucose; K58.9 Irritable bowel syndrome, unspecified; F41.9 Anxiety disorder, unspecified; G47.00 Insomnia, unspecified; R53.83 Other fatigue
CPT/HCPCS: 36415; 80053; 80061; 83036; 84439; 84443; 84481; 85025

== ENCOUNTER → 2024-06-07 08:35 | Outpatient (CLI) | payer MEDICARE, BC, SELFPAY ==
[2022-11-09 16:11] VITALS: BMI 19.7
--- NOTE | 2024-06-07 08:36 | DI.MG.S_ITS ---
UNILATERAL LEFT DIGITAL DIAGNOSTIC MAMMOGRAM 3D/2D: 06/07/2024 CLINICAL: Short term follow up for the left breast. Comparison is made to exams dated: 12/28/2023 mammogram, 04/20/2023 mammogram, 08/11/2022 mammogram, and 08/10/2021 mammogram - [facility]. The breasts are extremely dense, which lowers the sensitivity of mammography (category d />75% glandular tissue). There is a stable asymmetry with an indistinct margin in the left breast posterior depth lateral region seen on the craniocaudal view only. This was not seen on the prior ultrasound. No other significant masses or calcifications are seen in the breast. IMPRESSION: PROBABLY BENIGN The stable asymmetry in the left breast is probably benign. A follow-up bilateral mammogram with possible left ultrasound in 6 months is recommended to demonstrate retirement stability. Findings and recommendations were conveyed to the patient during today's evaluation. Based on the Tyrer Cuzick model (a risk assessment model) the patient's lifetime risk is 1.9% and her 10 year risk is 0.0%. According to the ACR, ACS, and NCCN guidelines, an annual breast MRI exam along with mammogram is recommended if the patient's lifetime risk is 20% or greater. This exam was interpreted at Station ID: [id number]. NOTE: For mammograms, a report in lay terms will be sent to the patient. Approximately 15% of breast malignancies will not be visualized mammographically. In the management of a palpable breast mass, a negative mammogram must not discourage biopsy of a clinically suspicious lesion. Electronically Signed By: Esteban Youssef M.D. at/:06/07/2024 09:12:27 letter sent: Followup Recommended ACR BI-RADS Category 3: Probably Benign
== END ==
PROVIDERS: PCP Family Medicine; Referring Provider Nurse Practitioner; Visit Provider Nurse Practitioner
DX: R92.8 Other abnormal and inconclusive findings on diagnostic imaging of breast (principal); N64.89 Other specified disorders of breast; R92.343 Mammographic extreme density, bilateral breasts
CPT/HCPCS: 77065; G0279

== ENCOUNTER → 2024-11-06 11:53 | Outpatient (CLI) | payer MEDICARE, BC, SELFPAY ==
[2022-11-09 16:11] VITALS: BMI 19.7
--- NOTE | 2024-11-06 11:55 | DI.MG.S_ITS ---
MM diagnostic mammo BI, US breast RT limited: 11/06/2024 BI-RADS: 2 CLINICAL: 84-year old female for bilateral diagnostic mammogram and right diagnostic breast ultrasound. Tyrer-Cuzick lifetime risk of 0.8%. No personal or first-degree family history of breast cancer. The patient reports a palpable abnormality (less than 1 month) in the right breast. The patient had a prior right breast biopsy. PRIOR EXAMS 06/07/2024, 12/28/2023, 04/20/2023, 09/02/2022, 08/11/2022, 08/10/2021, 08/07/2020, 03/28/2019. MAMMOGRAPHY TECHNIQUE: 2D and 3D (tomosynthesis) digital mammographic views obtained, with additional images as needed for full coverage. Current study was also evaluated with a Computer Aided Detection (CAD) system. ULTRASOUND TECHNIQUE Real-time cabrera scale and color doppler imaging of the area of clinical interest was performed with image documentation. Right targeted breast ultrasound of the area of clinical interest and the axilla was performed with image documentation. DENSITY D. The breasts are extremely dense, which lowers the sensitivity of mammography. MAMMOGRAPHY FINDINGS Right: Markers overlie the breast at the site of palpable abnormalities at 10:00 and 11:00. There is no underlying mammographic correlate at either site. Left: CC only, Outer, Posterior depth: There is a stable asymmetry present that is unchanged in size and appearance. ULTRASOUND FINDINGS Right: Upper Outer at 10:00, 6.0 cm from nipple: Fibrocystic changes at a posterior depth are incidental and do not correspond to the palpable abnormalities. No suspicious sonographic finding with typically benign findings noted. Right: Upper Outer at 10:00: There is no sonographic correlate for the palpable abnormality. Right: Upper Outer at 11:00: There is no sonographic correlate for the palpable abnormality. IMPRESSION: Right * No mammographic or sonographic correlate to the area(s) of palpable abnormality. Left * Left breast asymmetry has demonstrated two years of stability and is therefore benign. Bilateral * No evidence of malignancy with benign findings. RECOMMENDATIONS Bilateral * Annual screening mammography. COMMENTS: Findings and recommendations were conveyed to the patient during today's evaluation. OVERALL ASSESSMENT CATEGORY BI-RADS-2: Benign. The [employer] recommends annual screening mammography beginning at age 40 for women with average risk of breast cancer. ELECTRONICALLY SIGNED: Tami Lozada M.D. on 11/06/2024 at 02:45:33 PM PT Interpreting Station ID: [id number]
== END ==
PROVIDERS: PCP Family Medicine; Referring Provider Family Medicine; Visit Provider Family Medicine
DX: R92.8 Other abnormal and inconclusive findings on diagnostic imaging of breast (principal); N63.10 Unspecified lump in the right breast, unspecified quadrant; N64.89 Other specified disorders of breast; R92.343 Mammographic extreme density, bilateral breasts
CPT/HCPCS: 76642; 77066; G0279

== ENCOUNTER 2024-12-19 15:43 | Emergency (ER) | payer MEDICARE, BC, SELFPAY ==
[2022-11-09 16:11] VITALS: BMI 19.7
[2024-12-19] VITALS (28 sets, daily range): BP systolic 124–211; BP diastolic 57–100; PULSE 59–72; RESP 11–23; TEMP 36.4; O2SAT 95–99; BMI 20.1
--- NOTE | 2024-12-19 15:44 | EKG_ITS ---
[address] [address] Test Date: 2024-12-19 Pat Name: Angie Harris Department: Room: Gender: Female Power Washer: DANIEL : 1940 Requested By: Order Number: [id number] Reading MD: Yon Quintana Measurements Intervals [place] Rate: 67 P: 67 IL: 182 QRS: -12 QRSD: 90 T: 40 QT: 402 QTc: 424 Interpretive Statements Normal sinus rhythm Electronically Signed On 12-19-2024 16:23:48 PDT by Yon Quintana
--- NOTE | 2024-12-19 15:44 | DI.RAD.S_ITS ---
PROCEDURE: XR CHEST 1V INDICATIONS: Chest Pain TECHNIQUE: One view of the chest was acquired. COMPARISON: [facility], CR, XR CHEST 1V, 11/09/2022, 11:48. FINDINGS: Surgical changes and devices: None. Lungs and pleura: Lungs are clear. No pleural effusions or pneumothorax. Mediastinum: Mediastinal contours appear normal. Heart size is normal. Bones and chest wall: No suspicious bony lesions. Overlying soft tissues appear unremarkable. IMPRESSION: No acute cardiopulmonary pathology. Dictated by: Jayden Cortez M.D. on 12/19/2024 at 16:43 Approved by: Jayden Cortez M.D. on 12/19/2024 at 16:43
[2024-12-19 16:17] LABS: Add Manual Diff / Slide Review NO; Basophils Absolute Auto 100 /uL (0-100); Basophils Percent Auto 1.3 % (0-2); Eosinophils Absolute Auto 100 /uL (0-450); Eosinophils Percent Auto 2.8 % (2-4); Hematocrit 39.6 % (36-46); Hemoglobin 13.3 g/dL (12.0-16.0); Lymphocytes Absolute Auto 1900 /uL (1100-4500); Lymphocytes Percent Auto 37.2 % (25-40); Mean Corpuscular HGB Conc 33.5 % (30-36); Mean Corpuscular Hemoglobin 31.4 PG (26-34); Mean Corpuscular Volume 93.5 fL (80-100); Monocytes Absolute Auto 500 /uL (0-900); Monocytes Percent Auto 9.2 % (3-14); Neutrophils Absolute Auto 2500 /uL (1500-7000); Neutrophils Percent Auto 49.5 % (50-75); Platelet Count 212 X10^3/uL (150-400); Red Blood Cell Count 4.23 X10^6/uL (4.0-5.2); Red Cell Distribution Width 13.9 % (11.6-14.8); White Blood Cell Count 5.1 X10^3/uL (4.5-11.0)
--- NOTE | 2024-12-19 16:22 | ED.CHESTPAIN ---
HPI - Chest Pain <Senthil Renae, DO - Last Filed: 12/19/24 18:43> General Chief Complaint: Chest Pain Stated Complaint: Chest Tightness sent from PCP Time Seen by Provider: 12/19/24 16:19 Source: patient Mode of arrival: Ambulatory History of Present Illness HPI narrative: A 84-year-old female history of hypertension, dyslipidemia, and anxiety presents with heart flip-flopping initially as she described then became chest pain described as tightness heaviness radiating to bilateral shoulders and neck for which she took her Xanax and took some acid reflux medicine that did not relieve her symptoms. Patient denies nausea diaphoresis left arm pain but did take aspirin prior to arrival today. Patient had chest pain 2 years ago along with normal stress test 2 years ago. Other than what is stated 14 point review of system is negative. Related Data Home Medications Medication Instructions Recorded Confirmed alprazolam 0.25 mg tablet 0.25 mg PO Q6H PRN depression 03/20/19 10/18/24 calcium carbonate (Calcium 500) 500 mg PO DAILY 03/20/19 10/18/24 multivitamin (Daily Multi-Vitamin 1 tab PO DAILY 03/20/19 10/18/24 tablet) sertraline 25 mg tablet See Rx Instructions PO DAILY 08/23/22 10/18/24 ascorbate calcium (vitamin C) 500 1 g PO Q6H 08/08/24 10/18/24 mg tablet lutein 20 mg capsule 20 mg PO DAILY 08/08/24 10/18/24 Previous Rx's Medication Instructions Recorded atorvastatin 20 mg tablet 20 mg PO BEDTIME #90 tabs 01/16/24 dicyclomine 10 mg capsule 10 mg PO Q6H PRN IBS #30 caps 09/13/24 metoprolol succinate 50 mg 50 mg PO DAILY #30 tabs 10/18/24 tablet,extended release 24 hr sertraline 25 mg tablet 75 mg (3 x 25 mg) PO DAILY #90 tabs 10/18/24 Allergies Allergy/AdvReac Type Severity Reaction Status Date / Time No Known Drug Allergies Allergy Verified 12/19/24 15:45 Review of Systems <Senthil Renae, DO - Last Filed: 12/19/24 18:43> Review of Systems ROS Unobtainable: All systems reviewed & are unremarkable except as noted in HPI and below Patient History <Senthil Renae DO - Last Filed: 12/19/24 18:43> Medical History (Updated 12/19/24 @ 19:43 by Simran Garnett DO) Hearing loss Left breast mass Anxiety Prediabetes Elevated hemoglobin A1c HTN (hypertension) Age related osteoporosis IBS (irritable bowel syndrome) Hyperlipidemia Surgical History No pertinent past surgical history Family History Mother CAD (coronary artery disease) Father CAD (coronary artery disease) Social History household members: spouse Smoking Status: Unknown if ever smoked alcohol intake: current Smoking Status: Unknown if ever smoked alcohol intake frequency: a few times a week Exam <Senthil Renae DO - Last Filed: 12/19/24 18:43> Narrative Exam Narrative: GENERAL: [84] year old patient appears stated age. Well-developed patient, in mild distress. HEAD: Atraumatic. Normocephalic. EYES: Pupils equal round and reactive. Extraocular motions intact. No scleral icterus. No injection or drainage. ENT: Nose without bleeding, purulent drainage. Throat without erythema, tonsillar hypertrophy or exudate. Airway patent. NECK: Trachea midline. Non tender CARDIOVASCULAR: Regular rate and rhythm without murmurs, gallops, or rubs. RESPIRATORY: Clear to auscultation. Breath sounds equal bilaterally. No wheezes, rales, or rhonchi. GASTROINTESTINAL: Abdomen soft, non-tender, nondistended. EXTREMITIES: No edema or joint tenderness. BACK: Nontender without deformity or crepitance. No flank tenderness. NEURO: AOx3. SKIN: No rash or erythema of visible areas Initial Vital Signs Initial Vital Signs: Vital Signs Temperature 97.5 F L 12/19/24 15:45 Pulse Rate 72 12/19/24 15:45 Respiratory Rate 14 12/19/24 15:45 Blood Pressure 211/100 H 12/19/24 15:45 Pulse Oximetry 99 12/19/24 15:45 Oxygen Delivery Method Room Air 12/19/24 15:45 <Simran Garnett DO - Last Filed: 12/19/24 23:21> Initial Vital Signs Initial Vital Signs: Vital Signs Temperature 97.5 F L 12/19/24 15:45 Pulse Rate 72 12/19/24 15:45 Respiratory Rate 14 12/19/24 15:45 Blood Pressure 211/100 H 12/19/24 15:45 Pulse Oximetry 99 12/19/24 15:45 Oxygen Delivery Method Room Air 12/19/24 15:45 Course <Senthil Renae, DO - Last Filed: 12/19/24 18:43> Orders Ordered: ED Orders 12/19/24 15:44 XR chest 1V Stat EKG-12 Lead Stat RT Consult Eval and Treat NOW 12/19/24 16:05 Complete Blood Count AUTO DIFF Stat Comprehensive Metabolic Panel Stat Lactate (Lactic Acid) Stat Lipase Stat Magnesium Stat NT-proBNP (BNP-Adult 18+) Stat PTT Partial Thromboplastin Randal Stat Prothrombin Time INR Stat Troponin & CK Cardiac Panel Stat 12/19/24 18:11 Troponin I Stat Discontinued Medications Aspirin (Aspirin 81 Mg Chew Tab) 324 mg PO NOW ONE Stop: 12/19/24 15:45 Last Admin: 12/19/24 16:27 Dose: Not Given Documented By: YAHIR Nitroglycerin (Nitroglycerin 0.4 Mg Sl Tab) 0.4 mg SL NOW ONE Stop: 12/19/24 16:33 Last Admin: 12/19/24 16:37 Dose: 0.4 mg Documented By: YAHIR Vital Signs Vital signs: Vital Signs - 8 hr 12/19/24 15:45 12/19/24 16:35 12/19/24 16:37 Temperature 97.5 F L Pulse Rate 72 62 65 Respiratory Rate 14 18 Blood Pressure 211/100 H 190/86 H Pulse Oximetry 99 98 Oxygen Delivery Method Room Air 12/19/24 16:45 12/19/24 16:45 12/19/24 16:49 Temperature Pulse Rate 70 66 Respiratory Rate 20 22 Blood Pressure 129/67 Pulse Oximetry 98 96 Oxygen Delivery Method 12/19/24 16:50 12/19/24 16:50 12/19/24 16:55 Temperature Pulse Rate 68 Respiratory Rate Blood Pressure 127/62 142/68 H Pulse Oximetry 95 Oxygen Delivery Method 12/19/24 16:55 12/19/24 17:00 12/19/24 17:00 Temperature Pulse Rate 62 61 Respiratory Rate 16 12 Blood Pressure 142/67 H Pulse Oximetry 96 98 Oxygen Delivery Method 12/19/24 17:05 12/19/24 17:05 12/19/24 17:10 Temperature Pulse Rate 62 Respiratory Rate 21 Blood Pressure 141/64 H 132/63 Pulse Oximetry 97 Oxygen Delivery Method 12/19/24 17:10 12/19/24 17:15 12/19/24 17:15 Temperature Pulse Rate 62 61 Respiratory Rate 12 18 Blood Pressure 143/65 H Pulse Oximetry 97 96 Oxygen Delivery Method 12/19/24 17:20 12/19/24 17:20 12/19/24 17:25 Temperature Pulse Rate 61 Respiratory Rate 14 Blood Pressure 135/60 133/62 Pulse Oximetry 96 Oxygen Delivery Method 12/19/24 17:25 12/19/24 17:30 12/19/24 17:30 Temperature Pulse Rate 61 60 Respiratory Rate 20 14 Blood Pressure 137/64 Pulse Oximetry 97 97 Oxygen Delivery Method 12/19/24 17:35 12/19/24 17:35 12/19/24 17:40 Temperature Pulse Rate 61 Respiratory Rate 14 Blood Pressure 136/60 147/65 H Pulse Oximetry 98 Oxygen Delivery Method 12/19/24 17:40 12/19/24 17:45 12/19/24 17:45 Temperature Pulse Rate 61 60 Respiratory Rate 18 15 Blood Pressure 130/59 L Pulse Oximetry 97 98 Oxygen Delivery Method 12/19/24 17:50 12/19/24 17:50 12/19/24 17:55 Temperature Pulse Rate 59 L Respiratory Rate 19 Blood Pressure 124/59 L 139/64 Pulse Oximetry 96 Oxygen Delivery Method 12/19/24 17:55 12/19/24 18:00 12/19/24 18:00 Temperature Pulse Rate 59 L 59 L Respiratory Rate 12 20 Blood Pressure 133/59 L Pulse Oximetry 97 96 Oxygen Delivery Method 12/19/24 18:05 12/19/24 18:05 12/19/24 18:10 Temperature Pulse Rate 60 Respiratory Rate 23 Blood Pressure 146/64 H 138/57 L Pulse Oximetry 97 Oxygen Delivery Method 12/19/24 18:10 12/19/24 18:15 12/19/24 18:15 Temperature Pulse Rate 62 61 Respiratory Rate 23 Blood Pressure 155/66 H Pulse Oximetry 99 98 Oxygen Delivery Method 12/19/24 18:20 12/19/24 18:20 12/19/24 18:37 Temperature Pulse Rate 61 63 Respiratory Rate 13 Blood Pressure 147/67 H Pulse Oximetry 99 98 Oxygen Delivery Method 12/19/24 19:00 12/19/24 19:30 12/19/24 19:49 Temperature Pulse Rate 60 62 61 Respiratory Rate 16 11 L Blood Pressure 151/67 H Pulse Oximetry 99 98 Oxygen Delivery Method <Simran Garnett, - Last Filed: 12/19/24 23:21> Orders Ordered: ED Orders 12/19/24 15:44 XR chest 1V Stat EKG-12 Lead Stat RT Consult Eval and Treat NOW 12/19/24 16:05 Complete Blood Count AUTO DIFF Stat Comprehensive Metabolic Panel Stat Lactate (Lactic Acid) Stat Lipase Stat Magnesium Stat NT-proBNP (BNP-Adult 18+) Stat PTT Partial Thromboplastin Randal Stat Prothrombin Time INR Stat Troponin & CK Cardiac Panel Stat 12/19/24 18:11 Troponin I Stat Discontinued Medications Aspirin (Aspirin 81 Mg Chew Tab) 324 mg PO NOW ONE Stop: 12/19/24 15:45 Last Admin: 12/19/24 16:27 Dose: Not Given Documented By: YAHIR Nitroglycerin (Nitroglycerin 0.4 Mg Sl Tab) 0.4 mg SL NOW ONE Stop: 12/19/24 16:33 Last Admin: 12/19/24 16:37 Dose: 0.4 mg Documented By: YAHIR Vital Signs Vital signs: Vital Signs - 8 hr 12/19/24 15:45 12/19/24 16:35 12/19/24 16:37 Temperature 97.5 F L Pulse Rate 72 62 65 Respiratory Rate 14 18 Blood Pressure 211/100 H 190/86 H Pulse Oximetry 99 98 Oxygen Delivery Method Room Air 12/19/24 16:45 12/19/24 16:45 12/19/24 16:49 Temperature Pulse Rate 70 66 Respiratory Rate 20 22 Blood Pressure 129/67 Pulse Oximetry 98 96 Oxygen Delivery Method 12/19/24 16:50 12/19/24 16:50 12/19/24 16:55 Temperature Pulse Rate 68 Respiratory Rate Blood Pressure 127/62 142/68 H Pulse Oximetry 95 Oxygen Delivery Method 12/19/24 16:55 12/19/24 17:00 12/19/24 17:00 Temperature Pulse Rate 62 61 Respiratory Rate 16 12 Blood Pressure 142/67 H Pulse Oximetry 96 98 Oxygen Delivery Method 12/19/24 17:05 12/19/24 17:05 12/19/24 17:10 Temperature Pulse Rate 62 Respiratory Rate 21 Blood Pressure 141/64 H 132/63 Pulse Oximetry 97 Oxygen Delivery Method 12/19/24 17:10 12/19/24 17:15 12/19/24 17:15 Temperature Pulse Rate 62 61 Respiratory Rate 12 18 Blood Pressure 143/65 H Pulse Oximetry 97 96 Oxygen Delivery Method 12/19/24 17:20 12/19/24 17:20 12/19/24 17:25 Temperature Pulse Rate 61 Respiratory Rate 14 Blood Pressure 135/60 133/62 Pulse Oximetry 96 Oxygen Delivery Method 12/19/24 17:25 12/19/24 17:30 12/19/24 17:30 Temperature Pulse Rate 61 60 Respiratory Rate 20 14 Blood Pressure 137/64 Pulse Oximetry 97 97 Oxygen Delivery Method 12/19/24 17:35 12/19/24 17:35 12/19/24 17:40 Temperature Pulse Rate 61 Respiratory Rate 14 Blood Pressure 136/60 147/65 H Pulse Oximetry 98 Oxygen Delivery Method 12/19/24 17:40 12/19/24 17:45 12/19/24 17:45 Temperature Pulse Rate 61 60 Respiratory Rate 18 15 Blood Pressure 130/59 L Pulse Oximetry 97 98 Oxygen Delivery Method 12/19/24 17:50 12/19/24 17:50 12/19/24 17:55 Temperature Pulse Rate 59 L Respiratory Rate 19 Blood Pressure 124/59 L 139/64 Pulse Oximetry 96 Oxygen Delivery Method 12/19/24 17:55 12/19/24 18:00 12/19/24 18:00 Temperature Pulse Rate 59 L 59 L Respiratory Rate 12 20 Blood Pressure 133/59 L Pulse Oximetry 97 96 Oxygen Delivery Method 12/19/24 18:05 12/19/24 18:05 12/19/24 18:10 Temperature Pulse Rate 60 Respiratory Rate 23 Blood Pressure 146/64 H 138/57 L Pulse Oximetry 97 Oxygen Delivery Method 12/19/24 18:10 12/19/24 18:15 12/19/24 18:15 Temperature Pulse Rate 62 61 Respiratory Rate 23 Blood Pressure 155/66 H Pulse Oximetry 99 98 Oxygen Delivery Method 12/19/24 18:20 12/19/24 18:20 12/19/24 18:37 Temperature Pulse Rate 61 63 Respiratory Rate 13 Blood Pressure 147/67 H Pulse Oximetry 99 98 Oxygen Delivery Method 12/19/24 19:00 12/19/24 19:30 12/19/24 19:49 Temperature Pulse Rate 60 62 61 Respiratory Rate 16 11 L Blood Pressure 151/67 H Pulse Oximetry 99 98 Oxygen Delivery Method MDM - Chest Pain <Senthil Renae, DO - Last Filed: 12/19/24 18:43> Lab Data 12/19/24 16:05 12/19/24 16:05 Labs: Lab Results 12/19/24 12/19/24 Range/Units 16:05 18:11 WBC 5.1 (4.5-11.0) X10^3/uL RBC 4.23 (4.0-5.2) X10^6/uL Hgb 13.3 (12.0-16.0) g/dL Hct 39.6 (36-46) % MCV 93.5 (80-100) fL MCH 31.4 (26-34) PG MCHC 33.5 (30-36) % RDW 13.9 (11.6-14.8) % Plt Count 212 (150-400) X10^3/uL Neut % (Auto) 49.5 L (50-75) % Lymph % (Auto) 37.2 (25-40) % [place] % (Auto) 9.2 (3-14) % Eos % (Auto) 2.8 (2-4) % Baso % (Auto) 1.3 (0-2) % Neut # (Auto) 2500 (3712-1467) /uL Lymph # (Auto) 1900 (5544-0410) /uL [place] # (Auto) 500 (0-900) /uL Eos # (Auto) 100 (0-450) /uL Baso # (Auto) 100 (0-100) /uL PT 11.2 (9.4-12.5) SECONDS INR 1.0 (0.9-1.3) APTT 36 (25.1-36.5) SECONDS Sodium 135 L (137-145) mmol/L Potassium 4.0 (3.4-5.1) mmol/L Chloride 99 (98-107) mmol/L Carbon Dioxide 28 (22-32) mmol/L BUN 17 (7-17) mg/dL Creatinine 0.77 (0.52-1.04) mg/dL Estimated GFR > 60 (>60) mL/min BUN/Creatinine Ratio 22.1 H (6-22) Glucose 125 H (70-99) mg/dL Lactate 0.7 (0.7-2.1) mmol/L Calcium 9.4 (8.4-10.2) mg/dL Magnesium 2.0 (1.6-2.3) mg/dL Total Bilirubin 0.5 (0.2-1.3) mg/dL AST 39 H (14-36) IU/L ALT 25 (<35) IU/L Alkaline Phosphatase 55 (38-126) U/L Total Creatine Kinase 58 (30-135) U/L Troponin I < 0.012 < 0.012 (0.01-0.034) ng/mL NT-Pro-B Natriuret Pep 356 (<450) pg/mL Total Protein 7.4 (6.3-8.2) g/dL Albumin 4.3 (3.5-5.0) g/dL Globulin 3.1 (1.7-4.1) g/dL Albumin/Globulin Ratio 1.4 (1.0-2.8) Lipase 402 H (23-300) U/L ECG Data Interpretation: NSR HR 67 SC 182 QRS [address]-t wave change Unchanged from 11/09/22 <Simran Garnett, DO - Last Filed: 12/19/24 23:21> Lab Data Labs: Lab Results 12/19/24 12/19/24 Range/Units 16:05 18:11 WBC 5.1 (4.5-11.0) X10^3/uL RBC 4.23 (4.0-5.2) X10^6/uL Hgb 13.3 (12.0-16.0) g/dL Hct 39.6 (36-46) % MCV 93.5 (80-100) fL MCH 31.4 (26-34) PG MCHC 33.5 (30-36) % RDW 13.9 (11.6-14.8) % Plt Count 212 (150-400) X10^3/uL Neut % (Auto) 49.5 L (50-75) % Lymph % (Auto) 37.2 (25-40) % [place] % (Auto) 9.2 (3-14) % Eos % (Auto) 2.8 (2-4) % Baso % (Auto) 1.3 (0-2) % Neut # (Auto) 2500 (7246-5203) /uL Lymph # (Auto) 1900 (5473-7798) /uL [place] # (Auto) 500 (0-900) /uL Eos # (Auto) 100 (0-450) /uL Baso # (Auto) 100 (0-100) /uL PT 11.2 (9.4-12.5) SECONDS INR 1.0 (0.9-1.3) APTT 36 (25.1-36.5) SECONDS Sodium 135 L (137-145) mmol/L Potassium 4.0 (3.4-5.1) mmol/L Chloride 99 (98-107) mmol/L Carbon Dioxide 28 (22-32) mmol/L BUN 17 (7-17) mg/dL Creatinine 0.77 (0.52-1.04) mg/dL Estimated GFR > 60 (>60) mL/min BUN/Creatinine Ratio 22.1 H (6-22) Glucose 125 H (70-99) mg/dL Lactate 0.7 (0.7-2.1) mmol/L Calcium 9.4 (8.4-10.2) mg/dL Magnesium 2.0 (1.6-2.3) mg/dL Total Bilirubin 0.5 (0.2-1.3) mg/dL AST 39 H (14-36) IU/L ALT 25 (<35) IU/L Alkaline Phosphatase 55 (38-126) U/L Total Creatine Kinase 58 (30-135) U/L Troponin I < 0.012 < 0.012 (0.01-0.034) ng/mL NT-Pro-B Natriuret Pep 356 (<450) pg/mL Total Protein 7.4 (6.3-8.2) g/dL Albumin 4.3 (3.5-5.0) g/dL Globulin 3.1 (1.7-4.1) g/dL Albumin/Globulin Ratio 1.4 (1.0-2.8) Lipase 402 H (23-300) U/L MDM Narrative Medical decision making narrative: 89-year-old female with complaint of chest pain signed out to myself by Dr. Renae, CBC, coags, electrolytes BUN creatinine glucose are all normal AST is 39 normal bilirubin ALT alk-phos with a lipase of 402. Troponin is less than 0.02 with a repeat troponin of less than 0.02 and a BNP of 356.. Patient had negative chest x-ray EKG shows sinus rhythm rate of 67 SC 182 QRS of 90 QTC of [address] elevation depression noted. Patient has prior from 11/09/2022 appears similar to today's no acute changes. Patient had aspirin here in the department also had nitro sublingual. Patient was quite hypotensive upon arrival improved here in the department. Patient noted that she stopped her earlier blood pressure medication because it did not make her feel as good. She states she feels improved at this time. She would like to return home we discussed keeping for chest pain observation as her workup at this time does not show an acute heart attack but her symptoms are concerning for cardiac source. She prefers to discharge home and follow up with primary care I did ask her to start an aspirin 81 mg daily with strict return precautions. Patient has been at bedside both expressed understanding. She notes she has been checking her blood pressure at home and states was not elevated previously although she was not checked it in the past 3 days that she was had symptoms. Discharge Plan Departure Patient Disposition: Home Clinical Impression: Chest pain Instructions: DI for Chest Pain Activity Restrictions/Additional Instructions: Follow up with your physician, discuss about having stress testing as I am concerned it could be a cardiac source of your chest discomfort. He was you have elected not to stay overnight for observation I would ask that you started on 81 mg aspirin daily. Please return if you have new or worsening symptoms, new chest pain, shortness of breath, lightheadedness or passing out, new swelling in your extremities, sweatiness or diaphoresis or other new or concerning changes. Prescriptions: No Action ascorbate calcium (vitamin C) 500 mg tablet 1 g PO Q6H lutein 20 mg capsule 20 mg PO DAILY Rx Instructions: give with meal/snack dicyclomine 10 mg capsule 10 mg PO Q6H PRN (Reason: IBS) Qty: 30 3RF metoprolol succinate 50 mg tablet extended release 24 hr 50 mg PO DAILY Qty: 30 3RF sertraline 25 mg tablet 75 mg PO DAILY Qty: 90 3RF Rx Instructions: ok for early fill to allow for dose adjustment, dose at 75mg now alprazolam 0.25 mg tablet 0.25 mg PO Q6H PRN (Reason: depression) multivitamin [Daily Multi-Vitamin] tablet 1 tab PO DAILY calcium carbonate [Calcium 500] 500 mg calcium (1,250 mg) tablet 500 mg PO DAILY sertraline 25 mg tablet See Rx Instructions PO DAILY Patient Comments: Take a total 50mg daily Rx Instructions: Take a total of 50mg daily atorvastatin 20 mg tablet 20 mg PO BEDTIME Qty: 90 3RF Referrals: Louise Espinal MD [Primary Care Provider] - Stand Alone Forms: Patient Portal/API/Survey
[2024-12-19 16:23] LABS: Prothrombin Time 11.2 SECONDS (9.4-12.5)
[2024-12-19 16:26] LABS: PTT Partial Thromboplastin Tim 36 SECONDS (25.1-36.5)
[2024-12-19 16:27] LABS: Lactate (Lactic Acid) 0.7 mmol/L (0.7-2.1)
[2024-12-19 16:29] LABS: Alanine Aminotransferase 25 IU/L (<35); Albumin 4.3 g/dL (3.5-5.0); Albumin Globulin Ratio 1.4 (1.0-2.8); Alkaline Phosphatase 55 U/L (38-126); Aspartate Aminotransferase 39 IU/L (14-36); BUN Creatinine Ratio 22.1 (6-22); Bilirubin Total 0.5 mg/dL (0.2-1.3); Blood Urea Nitrogen 17 mg/dL (7-17); Calcium 9.4 mg/dL (8.4-10.2); Carbon Dioxide 28 mmol/L (22-32); Chloride 99 mmol/L (98-107); Creatine Kinase 58 U/L (30-135); Estimated Glomerular Filt Rate > 60 mL/min (>60); Globulin 3.1 g/dL (1.7-4.1); Glucose 125 mg/dL (70-99); HEMOLYSIS < 15 (0-50); Lipase 402 U/L (23-300); Sodium 135 mmol/L (137-145); Total Protein 7.4 g/dL (6.3-8.2)
[2024-12-19] MEDS: NITROGLYCERIN 0.4 MG SL TAB SL (16:37)
[2024-12-19 16:40] LABS: NT-proBNP (BNP-Adult 18+) 356 pg/mL (<450); Troponin I < 0.012 ng/mL (0.01-0.034)
--- NOTE | 2024-12-19 16:54 | PC.NURSE ---
5 minutes post nitro administration
--- NOTE | 2024-12-19 17:05 | PC.NURSE ---
Pt reports 2 nights ago she was laying in bed when she felt a flip flop in her chest. Pt reports ongoing chest discomfort/pressure in chest. Pt reports some SOB. Pt states she was seen here 2 years ago for CP workup and states they did a full work up and didn't find anything
[2024-12-19 19:12] LABS: Troponin I < 0.012 ng/mL (0.01-0.034)
== END 2024-12-19 20:10 | disposition home or self-care (01) ==
PROVIDERS: Family Medicine; Emergency Provider Emergency Medicine; PCP Family Medicine
DX: R07.9 Chest pain, unspecified (principal)
CPT/HCPCS: 36415; 71045; 80053; 82550; 83605; 83690; 83735; 83880; 84484; 85025; 85610; 85730; 93005; 99284

== ENCOUNTER → 2025-01-07 15:07 | Outpatient (CLI) | payer MEDICARE, BC, SELFPAY ==
[2024-12-28 18:03] VITALS: BMI 19.7
== END ==
PROVIDERS: PCP Family Medicine; Referring Provider Family Medicine; Visit Provider Family Medicine
DX: R00.2 Palpitations (principal); R07.9 Chest pain, unspecified
CPT/HCPCS: 93246; 93248

== ENCOUNTER → 2025-02-12 15:35 | Outpatient (CLI) | payer MEDICARE, BC, SELFPAY ==
[2024-12-28 18:03] VITALS: BMI 19.7
[2025-02-12 17:26] LABS: Add Manual Diff / Slide Review NO; Hematocrit 37.1 % (36-46); Hemoglobin 12.5 g/dL (12.0-16.0); Lymphocytes Absolute Auto 1700 /uL (1100-4500); Mean Corpuscular HGB Conc 33.7 % (30-36); Mean Corpuscular Hemoglobin 31.7 PG (26-34); Mean Corpuscular Volume 94.1 fL (80-100); Platelet Count 201 X10^3/uL (150-400)
[2025-02-12 17:44] LABS: HEMOLYSIS < 15 (0-50); Iron 87 ug/dL (37-170)
[2025-02-12 17:49] LABS: Alanine Aminotransferase 19 IU/L (<35); Albumin 4.0 g/dL (3.5-5.0); Albumin Globulin Ratio 1.6 (1.0-2.8); Alkaline Phosphatase 57 U/L (38-126); Blood Urea Nitrogen 17 mg/dL (7-17); Calcium 9.1 mg/dL (8.4-10.2); Carbon Dioxide 29 mmol/L (22-32); Chloride 101 mmol/L (98-107); Estimated Glomerular Filt Rate > 60 mL/min (>60); Globulin 2.5 g/dL (1.7-4.1); Glucose 140 mg/dL (70-99); HEMOLYSIS < 15 (0-50); Potassium 4.3 mmol/L (3.4-5.1); Sodium 137 mmol/L (137-145); Total Protein 6.5 g/dL (6.3-8.2)
[2025-02-12 17:56] LABS: Percent Iron Saturation 27 % (15-50); Total Iron Binding Capacity 326 ug/dL (265-497); Transferrin 257 mg/dL (206-381)
[2025-02-12 18:15] LABS: TSH w/ Reflex to FT4 1.18 uIU/mL (0.47-4.68)
[2025-02-12 18:23] LABS: Ferritin 100 ng/mL (11-264)
[2025-02-12 18:34] LABS: Vitamin B12 906 pg/mL (239-931)
[2025-02-12 21:04] LABS: Hemoglobin A1C% w Est Avg Glu 5.6 % (4.0-6.0)
[2025-02-14 08:40] LABS: Rubeola Measles IgG > 300.0 AU/mL (Immune >16.4)
== END ==
PROVIDERS: PCP Family Medicine; Referring Provider Family Medicine; Visit Provider Family Medicine
DX: Z11.59 Encounter for screening for other viral diseases (principal); L65.9 Nonscarring hair loss, unspecified; R73.09 Other abnormal glucose; R79.89 Other specified abnormal findings of blood chemistry; R41.3 Other amnesia; F41.9 Anxiety disorder, unspecified
CPT/HCPCS: 80053; 82607; 82728; 83036; 83540; 83550; 84443; 85025; 86765